=== PATIENT | female | born 1940 | race Caucasian/White ===

== ENCOUNTER → 2023-05-16 07:53 | Outpatient (REF) | payer MEDICARE, OTHER, SELFPAY | LOC: DHCBS MAIN 07:53 | PROVIDERS: ATTENDING PHYSICIAN Nuclear Medicine Nuclear Cardiology; FAMILY PHYSICIAN Family Medicine | DX: I48.0 Paroxysmal atrial fibrillation (principal); Z86.73 Personal history of transient ischemic attack (TIA), and cerebral infarction without residual deficits | CPT/HCPCS: 93306 ==

== ENCOUNTER 2023-10-27 04:54 | Observation (INO) | payer MEDICARE, OTHER, SELFPAY ==
[2023-10-26 22:23] VITALS: BP 151/60; BMI 32.0
[2023-10-26 22:25] VITALS: BP 151/60
[2023-10-26 22:38] LABS: % Basophils 0.6 % (0-2); % Eosinophils 1.6 % (0-6); % Immature Granulocytes 0.6 % (0-0.5); % Lymphocytes 20.6 % (20.5-51.1); % Monocytes 7.2 % (1.7-9.3); % Neutrophils 69.4 % (42.2-75.2); Absolute Basophils 0.1 10^3/uL (0-0.2); Absolute Eosinophils 0.2 10^3/uL (0-0.7); Absolute Immature Granulocytes 0.1 10^3/uL (0-0.05); Absolute Lymphocytes 2.6 10^3/uL (1.2-3.4); Absolute Monocytes 0.9 10^3/uL (0.1-0.6); Absolute Neutrophils 8.8 10^3/uL (1.4-6.5); Hematocrit 39.7 % (37.0-47.0); Hemoglobin 13.4 g/dL (12.0-16.0); Mean Corp Hgb Conc. 33.8 g/dL (33.0-37.0); Mean Corpuscular Hgb 29.3 pg (27.0-31.0); Mean Corpuscular Volume 86.7 fL (81.0-99.0); Mean Platelet Volume 10.4 fL (7.4-10.4); Nucleated Red Blood Cells % 0 %; Platelet Count 250 10^3/uL (130-400); Red Blood Cell Count 4.58 10^6/uL (4.20-5.40); Red Cell Dist. Width 14.3 % (11.5-14.5); White Blood Cell Count 12.7 10^3/uL (4.8-10.8)
[2023-10-26 22:55] VITALS: BP 145/57
[2023-10-26 22:59] LABS: ALT (SGPT) 20 U/L (0-35); AST (SGOT) 32 U/L (14-36); Albumin 4.4 g/dl (3.5-5.0); Alkaline Phosphatase 148 U/L (38-126); Blood Urea Nitrogen 22 mg/dl (7-17); Calcium 10.2 mg/dl (8.4-10.2); Carbon Dioxide 24 mmol/L (22-30); Chloride 101 mmol/L (98-107); Estimated Creatinine Clearance 21 ml/min; Glucose 125 mg/dl (70-99); Potassium 3.9 mmol/L (3.5-5.1); Sodium 143 mmol/L (135-145); Total Bilirubin 0.8 mg/dl (0.2-1.3); eGFR 25.88
[2023-10-26 23:00] VITALS: BP 150/60
[2023-10-26 23:30] VITALS: BP 162/63
[2023-10-27] VITALS (14 sets, daily range): BP systolic 126–178; BP diastolic 58–80; BMI 31.3
--- NOTE | 2023-10-27 01:49 | ED.GENMED ---
History of Present Illness
General
Chief Complaint: Anal/Rectal Problem
Source: patient
Exam Limitations: none
Time Seen by Provider: 10/27/23 00:07
History of Present Illness
History of Present Illness:
This is a 83 year old female that comes in with c/o rectal prolapse. Stae that she was to be here at 10:30am on Monday morning for a colonoscopy. States that she had to cancel two other attempts as she was unable to handle the prep. States that
today she started the prep again for the colonoscopy and she was just sitting on the toilet for hours. States that she had a rectal prolapse which she has had in the paste and it was as big as her hand. State that she had abd pain that was severe.
States that she felt more SOB, and that she has a headache most of the time and felt dizzy yesterday. States that she did have urinary burning. Denies any fever, chils, chest pain, nausea, vomiting,.
Past History
Past History
ED Past Medical History: Arrthythmia (Atrial fib), COPD, CVA (No residual), GERD (hiatal hernia), HTN, Hypercholesterolemia, NIDDM, Hypothyroidism and Other (Meniere's, IBS, PNA, Diverticulitis, Second hand emphysema, gastroenteritis, Stress incont,
Uterine and bowel prolpase)
ED Past Surgical History: Appendectomy, Gynecological (tubel, Partial Hysterectomy), Orthopedic (Bilateral knee replacements, Right knee X 2 and left knee once, Carpal tunnel, ), Tonsilectomy, Urological (Prolapsed bladder) and Other
(Thyroidectomy, Cataracts, Right and left breast cyst)
Social History
Tobacco: Non-smoker (Second hand smoke)
Alcohol: None
Drug: None
Personal:
Living: with family
Employment: Retired
Family History
Family History: Other (COPD )
Review of Systems
Review of Systems
All Other Systems: ROS reviewed and negative except as documented in HPI and ROS
Constitutional: Reports no symptoms; Denies fever or chills
EENT: Reports no symptoms
Respiratory: Reports trouble breathing; Denies cough
Cardiac: Reports no symptoms; Denies chest pain
ABD/GI: Reports abdominal pain, diarrhea and other (Rectal prolapse); Denies nausea or vomiting
: Reports dysuria; Denies frequency or urgency
Musculoskeletal: Reports no symptoms
Skin: Reports no symptoms
Neurological: Reports dizzy and headache (Most of the time)
Psychiatric: Reports no symptoms
Phy Exam
General Physical Exam
General Presentation: mild distress
General age: appears stated age
General Skin: warm and dry
General Habitus: elderly
General Mental: alert
General Hydration: dry mucous membranes
ENT Exam
ENT Exam: TM's normal, pharynx normal and neck supple
Eye Exam
Eye Exam: EOMI
Cardiovascular Exam
Cardiovascular Exam: regular rate/rhythm, normal peripheral pulses and other (Murmur)
Pulmonary Exam
Pulmonary Exam: lungs clear, no respiratory distress, no rales, chest non tender, no crackles, no rhonchi, no wheezing and no cough
Gastrointestinal Exam
Gastrointestinal Exam: soft, no organomegaly, no pulsatile mass, non distended, tender (Generalized tenderness with palpation) and other (Hyperactive bowel sounds)
Musculoskeletal Exam
Musculoskeletal Exam: full ROM and no edema
Skin Exam
Skin Exam: normal color, warm/dry, no rash and no petechia
Psychiatric Exam
Psychiatric Exam: normal mood/affect
Course
Orders/Labs/Results
Orders:
Orders
10/26/23 22:29
Electrocardiogram (*1) Urgent
Reason for Study: Chest Pain
EKG- Treatment ONCE
10/26/23 22:32
Complete Blood Count/With Diff Urgent
Comprehensive Metabolic Panel Urgent
10/27/23 01:49
0.9% Sodium Chloride 1000 ml [Nss] 1,000 ml IV BOLUS
10/27/23 01:53
Urinalysis Reflex To Culture Urgent
Abnormal Lab Results
10/26/23
22:32
WBC 12.7 H 10^3/uL
(4.8-10.8)
Abs Immat Gran (auto) 0.1 H 10^3/uL
(0-0.05)
Absolute Neuts (auto) 8.8 H 10^3/uL
(1.4-6.5)
Absolute Monos (auto) 0.9 H 10^3/uL
(0.1-0.6)
Immature Gran % 0.6 H %
(0-0.5)
BUN 22 H mg/dl
(7-17)
Creatinine 1.9 H mg/dL
(0.6-1.0)
Glucose 125 H mg/dl
(70-99)
Alkaline Phosphatase 148 H U/L
(38-126)
10/26/23 22:32
10/26/23 22:32
Leukocytosis, Dehydration. Chronic renal insufficiency,, Hyperglycemia. Alk phos elevation.
Vital Signs
Initial and Last Documented VS:
Initial Vital Signs
Temp Pulse Resp BP Pulse Ox
98.5 F 86 16 151/60 99
10/26/23 22:23 10/26/23 22:23 10/26/23 22:23 10/26/23 22:23 10/26/23 22:23
Last Documented Vital Signs
Temp Pulse Resp BP Pulse Ox
98.5 F 81 17 168/69 93
10/26/23 22:23 10/27/23 00:45 10/27/23 00:45 10/27/23 00:00 10/27/23 00:45
MDM/Problems Addressed
Differential Diagnosis Includes:
Prolapse bowel, Weakness, abd pain
MDM/Problems Addressed:
This is a 83 year old female that comes in with c/o prolapsed bowel. States that she is doing a prep for a colonoscopy today and she had to sit on the toilet as the fluid was just running out. States that she felt a rectal prolapse that was as big
as her head. States that she did have this years ago and had the bladder repaired but was unable to get the rectal prolapsed repaired. States that she is so weak and she feels she can't do any more of the prep.
Will check labs. Give IV fluids. Explained to patient that the prolapse has receded and that she does have some hemorrhoids. Patient c/o abd pain and weakness. Will admit for 23 hours observation.
Chronic conditions affecting care:
History of Prolapse bladder and bowel,
Acute Exacerbation and/or Progression of Chronic Illness:
Prolapsed bowel,
*Pulse Oximetry
Patient hypoxic: no
*EKG
Interpreted by ED Provider?: Yes
Heart Rate: 76
Rate: normal
Rhythm: sinus
[place]: normal axis
Interval: first degree heart block and long QT
QRS Pattern: normal QRS
Ischemia: no ischemia
*[employer] Interpretation
Rate: normal
Heart Rate: 80
Rhythm: sinus (1St degree heart block)
*Critical Care Note
Total Time (30-74mins, 75-104mins- exclusive of procedures): Not Applicable
ED Attending Note
-
Portions of this chart may have been created with voice recognition software.� Occasional wrong word or��sound alike� substitutions may have occurred due to the inherent limitations of voice recognition software.
Discharge Plan
Departure
Patient Disposition: Admit
Date of Disposition: 10/27/23
Time of Disposition: 02:12
Admit to: Med/Surg
Presentation/result/management discussed w/ accepting MD/DO: Hospitalist
Patient with high blood pressure during this ER visit?: Yes
Condition: Good
Covid-19: Not Applicable
Discharge Problem:
Abdominal pain, Weakness
Prescriptions:
No Action
calcium carbonate-vitamin D3 [Caltrate 600 plus D] 1 EACH tablet,chewable
1 tab PO DAILY
multivitamin with folic acid [Tab-A-Brandon] 1 TABLET tablet
1 tab PO DAILY
levothyroxine 75 MCG tablet
75 mcg PO DAILY
atorvastatin 20 MG tablet
40 mg PO QPM
B-complex with vitamin C 1 CAPLET tablet
1 cap PO DAILY
sertraline 50 MG tablet
25 mg PO DAILY
calcium polycarbophil [Fiber-Tabs] 625 MG tablet
1,250 mg PO BID
diltiazem HCl 120 MG capsule,extended release 24hr
120 mg PO BID
allopurinol 100 MG tablet
150 mg PO DAILY
aspirin 81 MG tablet,delayed release (DR/EC)
81 mg PO DAILY
furosemide 20 MG tablet
40 mg PO DAILY
potassium chloride 10 MEQ tablet,ER particles/crystals
10 meq PO DAILY
Lactobac 2-Bifido 1-S. therm [High Potency Probiotic] 1 CAP capsule
1 cap PO DAILY
clopidogrel 75 MG tablet
75 mg PO DAILY Qty: 21 0RF
Referrals:
Scooter Green MD [Family Provider] -
Interventions
Interventions:
*Risk Screen - Suicide Last Done: 10/26/23 22:23
*General Assessment Last Done: 10/26/23 22:23
*Neglect/Abuse Screening Last Done: 10/26/23 22:23
ED- Fall Risk Assessment Last Done: 10/26/23 22:23
XX-Zctufc-Eudryqsuxz Assessment Last Done: 10/26/23 22:23
Discharge Date and Time
Print Language: SWAZI
[2023-10-27] MEDS: NSS 1000 IV (02:03)
--- NOTE | 2023-10-27 03:59 | HPS.HSE ---
Family Physician
-
Family Physician: Scooter Green
Chief Complaint
-
Rectal prolapse, now reduced spontaneosly
History of Present Illness
Patient is lifrwdr-ndfo-vry female with past medical history significant for proximal atrial fibrillation hypothyroidism hypertension, CKD, hyperlipidemia, gout, presenting to the emergency department with a rectal prolapse.
Patient was in usual state of health and was apparently undergoing prep for a colonoscopy. She had been having intermittent episodes of bright red blood per rectum which showed because the referral for the colonoscopy. Patient had one half of the
prep and then started having bowel movements. Then she started having abdominal pain and rectal pain. There was no blood. The prolapse was the the extent of her hand and she did notice severe pain with the weakness in the legs and decided to come
to the emergency department.
On arrival in the emergency department the patient was recumbent and the rectal prolapse that resolved spontaneously. She still complain of some bilateral lower quadrant tenderness and mild abdominal discomfort. There is no nausea or vomiting.
Of note patient had a history of prolapse as well as rectal prolapse about 10 years ago. She underwent surgery for the uterine prolapse at [facility] slightly less than 10 years ago with plans for a repair of the rectal prolapse as well but this
was never completed. She had recurrent symptoms since. Denies constipation.
In the emergency department she was afebrile, hemodynamically stable normal oxygen saturation and in no acute distress. ECG was unremarkable with a rate of 76 for degree of block and QTc of 542. There is a mild leukocytosis to 12,000 with normal
hemoglobin and platelet counts. Chemistries were unremarkable with a known creatinine of 1.9 which is up from 1.7 from 3 years ago.
Medical History
Past Medical History
Past Medical History: Reports Arrhythmia (paroxysmal atrial fibrillation), HTN and Hypercholesterolemia
Additional Past Medical History:
CKD 3
Menieres
Past Surgical History: Reports Gynocological (uterine prolapse repair) and Orthopedic (TKA)
Social History
Tobacco: Non-smoker
Alcohol: None
Drug: None
Personal:
Living: With Family
Employment: Retired
Family History
Family History: Not pertinent
Allergies / Home Medications
Allergies reflects when Allergies were last updated in [facility].
Home Medications with original date entered in [facility]
Allergy/Medication List:
Allergies
Allergy/AdvReac Type Severity Reaction Status Date / Time
Penicillins Allergy Unknown Hives,Hives; Verified 10/26/23 22:23
TOLERATES
CEFAZOLIN,Hives,Hives;
TOLERATES
CEFA
NSAIDS (Non-Steroidal Allergy 'stomach Verified 10/26/23 22:23
Anti-Inflamma issues
rofecoxib Allergy 'STOMACH Verified 10/26/23 22:23
ISSUES'
Home Medications
calcium carbonate 600 mg-vitamin D3 20 mcg (800 unit) chewable tablet (Caltrate 600 plus D) 1 tab PO DAILY Supplement 03/28/14
multivitamin with folic acid 400 mcg tablet (Tab-A-Brandon) 1 tab PO DAILY Supplement 11/10/16
levothyroxine 75 mcg tablet 75 mcg PO DAILY Thyroid 11/21/17
B-complex with vitamin C 1 cap PO DAILY Supplement 02/28/18
atorvastatin 20 mg tablet 80 mg PO QPM High cholesterol 02/28/18
sertraline 50 mg tablet 25 mg PO DAILY Depression 10/07/18
calcium polycarbophil 625 mg tablet (Fiber-Tabs) 1,250 mg PO BID Gastrointestinal issue 07/16/19
diltiazem HCl 120 mg capsule,extended release 24 hr 120 mg PO BID Blood pressure 07/16/19
Lactobac no.2-Bifidobac no.1-S. thermo 112.5 billion cell capsule (High Potency Probiotic) 1 cap PO DAILY Supplement 05/08/20
allopurinol 100 mg tablet 150 mg PO DAILY Gout 05/08/20
aspirin 81 mg tablet,delayed release 81 mg PO DAILY Blood clot prevention/tx 05/08/20
furosemide 20 mg tablet 40 mg PO DAILY Fluid retention/Swelling 05/08/20
potassium chloride 10 mEq tablet,extended release(part/cryst) 10 meq PO DAILY Supplement 05/08/20
clopidogrel 75 mg tablet 75 mg PO DAILY #21 tabs 05/09/20
acetaminophen 650 mg tablet,extended release 650 mg PO Q12H PRN pain 10/27/23
meclizine 25 mg tablet 25 mg PO DAILY PRN vertigo 10/27/23
Review of Systems
-
History Source: Patient
Constitutional: Reports No Symptoms
EENT: Reports No Symptoms
Respiratory: Reports No Symptoms
Cardiac: Reports No Symptoms
Abdomen/GI: Reports Abdominal Pain
: Reports No Symptoms
Musculoskeletal: Reports No Symptoms
Skin: Reports No Symptoms
Neurological: Reports No Symptoms
Endocrine: Reports No Symptoms
Hematologic/Lymphatic: Reports No Symptoms
Psych: Reports No Symptoms
Physical Exam
Vital Signs
Vital Signs
Temp Pulse Resp BP Pulse Ox
98.5 F 81 17 168/69 93
10/26/23 22:23 10/27/23 00:45 10/27/23 00:45 10/27/23 00:00 10/27/23 00:45
Physical Exam
General: Comfortable
HEENT: NormoCephalic, Anicteric, Moist mucous membranes and Atraumatic
Respiratory: Clear
Cardiac: S1/S2 and Regular Rhythm
Breast: Deferred by me
GI: Soft, Non Distended, Normal Bowel Sounds and Tender
Rectal: Deferred by Provider
Genito-urinary: Deferred by me
Musculoskeletal: No Clubbing, No Cyanosis and No Edema
Skin: Warm
Neuro: AO x 3
Hematologic/Lymphatic: No Lymphadenopathy
Psych: Calm
Laboratory Results
-
10/26/23 22:32
10/26/23 22:32
Laboratory Results
Total Bilirubin 0.8 mg/dl (0.2-1.3) 10/26/23 22:32
AST 32 U/L (14-36) 10/26/23 22:32
ALT 20 U/L (0-35) 10/26/23 22:32
Alkaline Phosphatase 148 U/L (38-126) H 10/26/23 22:32
Data Reviewed
-
Medical Tests (Nuc Med, Echo, EKG etc): Image Personally Visualized and interpreted
Lab Data: Labs Reviewed by me
Old Records: Reviewed
Impression/Plan
-
IMPRESSION:
PLAN:
Rectal prolapse - History of prior rectal and vaginal prolapse with repair at [facility] about 10 years ago. Developed episode of rectal prolapse after 1/2 prep for colonoscopy that was scheduled for 10/26 10:30 am. The rectal prolapse reduced
spontaneously on arrival in ED. She still feels weak and anxious. No acute abnormalities on lab. Denies recent constipation.
- admit to observation
- clear liquid diet for now
- GI surgery consultation
- gentle hydration for now
pAFIB - Patient rate control. No anticoagulation due to concern for bleeding
- rate control with diltiazem
TIA/CVA -
- aspirin, statin
DVT PPX - heparin sq
Code status - DNR
[2023-10-27 07:56] LABS: Urine Albumin Negative (Neg - Trace); Urine Bilirubin Negative (Negative); Urine Character Slightly Cloudy (Clear); Urine Color Yellow; Urine Glucose Negative (Negative); Urine Ketone Negative (Negative); Urine Leukocyte Trace (Negative); Urine Nitrite Negative (Negative); Urine Occult Blood Negative (Negative); Urine Specific Gravity 1.015 (<1.030); Urine Urobilinogen Negative (Neg - 1+); Urine pH 6.5 (5.0-9.0)
[2023-10-27 08:11] LABS: Urine Bacteria Moderate (Negative); Urine Squamous Cell >30 /LPF (Few)
[2023-10-27 08:12] LABS: Urine Red Blood Cell 0-2 /HPF (0-2)
[2023-10-27] MEDS: SYNTHROID 75 MCG PO (09:20)
[2023-10-27] MEDS: LR 1000 IV (09:20)
--- NOTE | 2023-10-27 09:26 | CON.CRS ---
Consultation
-
Date/Time Consultation Requested: 10/27/2023, 07:00
Date/Time Consultation Performed: 10/27/2023, 08:30
Requesting Provider: Isabela Ceron MD
Performing Provider: Jim Tai MD
Reason for Consultation: rectal prolapse
Medical History
-
Chief Complaint: Rectal prolapse
History of Present Illness:
83-year-old female with a past medical history of uterine prolapse and atrial fibrillation, presents to [facility] early this a.m. complaining of rectal prolapse. The patient was to undergo a colonoscopy today and had been doing the Sutab prep
yesterday. She states that she normally has a little bit of prolapse at baseline but after she prepped for this colonoscopy, she had severe diarrhea and noticed a large prolapse. She states she had severe back and abdominal pain during the
prolapse. She denies incontinence.
On arrival to the ER apparently the prolapse had resolved. She states she had a uterine prolapse in the past and this was repaired at [facility] about 10 years ago which she does not recall the surgery. She believes she still has a uterus. She
has had polyps in the past during her colonoscopies. Her past abdominal surgeries include a tubal ligation and appendectomy. In the ER her WBC is 12.7. Her labs are normal. We have been consulted for further surgical opinion regarding her
prolapse.
Past Medical History
Past Medical History: Other (Atrial fibrillation, uterine prolapse, hypertension, hyperlipidemia)
Past Surgical History: Appendectomy and Gynecological (Tubal ligation)
Social History
Tobacco: Non-Smoker
Alcohol: None
Drug: None
Personal:
Family History
Family History: Reviewed & Not Pertinent
Allergies / Home Medications
Allergy/AdvReac Type Severity Reaction Status Date / Time
Penicillins Allergy Unknown Hives,Hives; Verified 10/26/23 22:23
TOLERATES
CEFAZOLIN,Hives,Hives;
TOLERATES
CEFA
NSAIDS (Non-Steroidal Allergy 'stomach Verified 10/26/23 22:23
Anti-Inflamma issues
rofecoxib Allergy 'STOMACH Verified 10/26/23 22:23
ISSUES'
�Medication �Instructions �Recorded �Confirmed �Type
calcium carbonate 600 mg-vitamin 1 tab PO DAILY Supplement 03/28/14 10/27/23 History
D3 20 mcg (800 unit) chewable
tablet (Caltrate 600 plus D)
multivitamin with folic acid 400 1 tab PO DAILY Supplement 11/10/16 10/27/23 History
mcg tablet (Tab-A-Brandon)
levothyroxine 75 mcg tablet 75 mcg PO DAILY Thyroid 11/21/17 10/27/23 History
B-complex with vitamin C 1 cap PO DAILY Supplement 02/28/18 10/27/23 History
atorvastatin 20 mg tablet 80 mg PO QPM High cholesterol 02/28/18 10/27/23 History
sertraline 50 mg tablet 25 mg PO DAILY Depression 10/07/18 10/27/23 History
calcium polycarbophil 625 mg 1,250 mg PO BID Gastrointestinal 07/16/19 10/27/23 History
tablet (Fiber-Tabs) issue
diltiazem HCl 120 mg 120 mg PO BID Blood pressure 07/16/19 10/27/23 History
capsule,extended release 24 hr
Lactobac no.2-Bifidobac no.1-S. 1 cap PO DAILY Supplement 05/08/20 06/10/20 History
thermo 112.5 billion cell capsule
(High Potency Probiotic)
allopurinol 100 mg tablet 150 mg PO DAILY Gout 05/08/20 10/27/23 History
aspirin 81 mg tablet,delayed 81 mg PO DAILY Blood clot 05/08/20 10/27/23 History
release prevention/tx
furosemide 20 mg tablet 40 mg PO DAILY Fluid 05/08/20 10/27/23 History
retention/Swelling
potassium chloride 10 mEq 10 meq PO DAILY Supplement 05/08/20 10/27/23 History
tablet,extended release(part/cryst)
clopidogrel 75 mg tablet 75 mg PO DAILY #21 tabs 05/09/20 06/10/20 Rx
acetaminophen 650 mg 650 mg PO Q12H PRN pain 10/27/23 10/27/23 History
tablet,extended release
meclizine 25 mg tablet 25 mg PO DAILY PRN vertigo 10/27/23 10/27/23 History
Review of Systems
-
History Source: Patient
Abdomen/GI: Abdominal Pain, Diarrhea and Other (rectal prolapse)
A 10 point review of systems was completed, and was negative except as per HPI.
Physical Exam
Vital Signs
Temp 97.8 F 10/27/23 07:50
Pulse 77 10/27/23 07:50
Resp Rate 18 10/27/23 07:50
Blood pressure 126/80 10/27/23 07:50
SaO2 96 10/27/23 07:50
10/26/23 10/27/23 10/28/23
06:59 06:59 06:59
Actual Weight 76.9 kg 77.649 kg
Body Mass Index (BMI) 31.3
Lab Results / Allergies
10/26/23 22:32
10/26/23 22:32
WBC 12.7 10^3/uL (4.8-10.8) H 10/26/23 22:32
Hgb 13.4 g/dL (12.0-16.0) 10/26/23 22:32
Hct 39.7 % (37.0-47.0) 10/26/23 22:32
Plt Count 250 10^3/uL (130-400) 10/26/23 22:32
Abs Immat Gran (auto) 0.1 10^3/uL (0-0.05) H 10/26/23 22:32
Neutrophils % 69.4 % (42.2-75.2) 10/26/23 22:32
Allergy/AdvReac Type Severity Reaction Status Date / Time
Penicillins Allergy Unknown Hives,Hives; Verified 10/26/23 22:23
TOLERATES
CEFAZOLIN,Hives,Hives;
TOLERATES
CEFA
NSAIDS (Non-Steroidal Allergy 'stomach Verified 10/26/23 22:23
Anti-Inflamma issues
rofecoxib Allergy 'STOMACH Verified 10/26/23 22:23
ISSUES'
Physical Exam
General: Well Developed, Well Nourished and No Apparent Distress
GI: Soft, Non Tender and Non Distended
Rectal: Other (one internal prolapsing hemorrhoid noted, slightly diminished tone, no masses, no bleeding, no rectal prolapse noted)
Skin: Warm and Dry
Neuro: AO x 3
Psych: Calm
Assessment / Plan
-
Assessment: 83-year-old female with prolapsed rectum in the past presents with worsening rectal prolapse after a colonoscopy prep
Plan:
On examination, the patient had one prolapsing internal hemorrhoid. She had no rectal prolapse currently on exam. We explained to the patient that rectal prolapse requires emergency surgery when it is not reducible and becoming necrotic, which is
not her case. It is possible the patient has large internal hemorrhoids that are prolapsing and worsen during her bowel prep. Regardless, there is no need for any urgent surgery at this time. She may follow-up in our office for an anoscopy exam
and further treatment of her internal hemorrhoids/ ? rectal prolapse. Continue fiber supplement. Follow-up in the office with Dr. Tai in 1 to 2 weeks.
[2023-10-27] MEDS: ZYLOPRIM 150 MG PO (10:11)
[2023-10-27] MEDS: ASPIR LOW (ENTERIC COATED) 81 MG PO (10:11)
[2023-10-27] MEDS: ZOLOFT 25 MG PO (10:11)
[2023-10-27] MEDS: CARDIZEM CD 120 MG PO (10:13)
[2023-10-27] MEDS: HEPARIN 5000 UNITS SC (10:14)
--- NOTE | 2023-10-27 11:29 | W.PN.UPDATE ---
Addendum entered and electronically signed by Edwin Gary MD 10/27/23 11:59:
Discussed with gastroenterology. Patient seen by colorectal. Suspected hemorrhoidal irritation. Patient is discharged home so can be discharged to outpatient GI lab for colonoscopy.
Original Note:
Update Note
Progress Note Update
Seen and examined independent of overnight physician. Denies any abdominal or rectal pain. States she finish colonoscopy prep yesterday and was supposed to undergo colonoscopy later today.
General: Comfortable
HEENT: NormoCephalic, Anicteric, Moist mucous membranes and Atraumatic
Respiratory: Clear
Cardiac: S1/S2 and Regular Rhythm
Breast: Deferred by me
GI: Soft, Non Distended, Normal Bowel Sounds and Tender
Rectal: Deferred by Provider
Genito-urinary: Deferred by me
Musculoskeletal: No Clubbing, No Cyanosis and No Edema
Skin: Warm
Neuro: AO x 3
Hematologic/Lymphatic: No Lymphadenopathy
Psych: Calm
Hemorrhoidal irritation secondary to colonoscopy prep
- History of prior rectal and vaginal prolapse with repair at [facility] about 10 years ago.
- NPO if patient can get colonoscopy once discharged
- gentle hydration for now
-appreciate CRS recs-Op f/u 1-2 weeks
pAFIB - Patient rate control. No anticoagulation due to concern for bleeding
- rate control with diltiazem
TIA/CVA -
- aspirin, statin
DVT PPX - heparin sq
Code status - DNR
d/w wtih GI. await to hearing back.
--- NOTE | 2023-10-27 11:38 | W.DCSUMMARY ---
Discharge Summary
Discharge Data
Date of Admission: 10/27/23
Date of Discharge: 10/27/23
-
Pending Results: No
Hospital Course
83 female past medical history of atrial fibrillation,, CKD, hypothyroidism, hyperlipidemia, History of stroke who is presenting from home with abdominal pain and complaining of rectal prolapse. Patient was undergoing colonoscopy prep as outpatient
for anemia. Patient having multiple bowel movement. Stating of abdominal and rectal pain. Patient stated prolapsed rectum was extended for hand and was having severe pain and lower extremity weakness. Was found to have mild leukocytosis
however hemoglobin and platelets were stable. Creatinine almost at baseline. Patient was evaluated by colorectal surgery. It was found upon surgery evaluation the patient with hemorrhoids and no prolapse was noted. It was deemed patient with
hemorrhoid irritation due to colonoscopy prep. Patient case was discussed with inpatient gastroenterology who recommended that patient if discharged home then can follow-up directly to outpatient GI lab for colonoscopy. Patient be discharged home
for outpatient colonoscopy. Patient would also need to follow-up outpatient with colorectal surgery.
Discharge Plan
-
Patient Disposition: Home (Routine Discharge)
Discharge Diagnosis/Procedures: Hemorrhoidal irritation
Condition: Fair
Diet: As tolerated
Activity: No restrictions
Driving Restrictions: As prior to admission
Referrals:
Jim Tai MD [Active] - in one to two weeks
Scooter Green MD [Family Provider] - in less than 1 week
Prescriptions:
Continued
Caltrate 600 plus D 1 EACH tablet,chewable
1 tab PO DAILY
multivitamin with folic acid [Tab-A-Brandon] 1 TABLET tablet
1 tab PO DAILY
levothyroxine 75 MCG tablet
75 mcg PO DAILY
atorvastatin 20 MG tablet
80 mg PO QPM
B-complex with vitamin C 1 CAPLET tablet
1 cap PO DAILY
sertraline 50 MG tablet
25 mg PO DAILY
calcium polycarbophil [Fiber-Tabs] 625 MG tablet
1,250 mg PO BID
diltiazem HCl 120 MG capsule,extended release 24hr
120 mg PO BID
allopurinol 100 MG tablet
150 mg PO DAILY
aspirin 81 MG tablet,delayed release (DR/EC)
81 mg PO DAILY
furosemide 20 MG tablet
40 mg PO DAILY
potassium chloride 10 MEQ tablet,ER particles/crystals
10 meq PO DAILY
High Potency Probiotic 1 CAP capsule
1 cap PO DAILY
clopidogrel 75 MG tablet
75 mg PO DAILY Qty: 21 0RF
acetaminophen 650 mg Tablet Extended Release
650 mg PO Q12H PRN (Reason: pain)
meclizine 25 mg Tablet
25 mg PO DAILY PRN (Reason: vertigo)
Discharge Orders:
Discharge Patient (As Directed); Ordered 10/27/23
Ordered By: Edwin Gary
Discharge Date and Time
Discharge Date/Time: 10/27/23 13:38
Print Language: SETSWANA
--- NOTE | 2023-10-27 12:28 | CM ---
night shift manager reviewed patient's chart and met with patient and patient was admitted under OBS, PECK letter provided to patient, signed and placed on chart. Patient lives with spouse in a one story home, patient is independent with adl's and
ambulation, Patient is for outpatient colonoscopy today and then home.
Pharmacy: [facility]
PCP: Dr. Green
Plan; Home today, no needs, patient to transfer to GI office for outpatient colonoscopy then home.
== END 2023-10-27 13:38 | disposition home or self-care (01) ==
LOC: 4 WEST ACU 04:54
PROVIDERS: Clinical Nurse Specialist Family Health; Emergency Medicine; ADMITTING PHYSICIAN Internal Medicine; ATTENDING PHYSICIAN Hospitalist; CONSULT PHYSICIAN Surgery; EMERGENCY PHYSICIAN Student in an Organized Health Care Education/Training Program; FAMILY PHYSICIAN Family Medicine
DX: K64.8 Other hemorrhoids (principal); D64.9 Anemia, unspecified; R10.9 Unspecified abdominal pain; R06.02 Shortness of breath; R51.9 Headache, unspecified; R42 Dizziness and giddiness; R30.9 Painful micturition, unspecified; I48.0 Paroxysmal atrial fibrillation; K58.9 Irritable bowel syndrome, unspecified; E78.00 Pure hypercholesterolemia, unspecified; I12.9 Hypertensive chronic kidney disease with stage 1 through stage 4 chronic kidney disease, or unspecified chronic kidney disease; E11.22 Type 2 diabetes mellitus with diabetic chronic kidney disease; E11.36 Type 2 diabetes mellitus with diabetic cataract; E11.65 Type 2 diabetes mellitus with hyperglycemia; E03.9 Hypothyroidism, unspecified; M10.9 Gout, unspecified; K62.5 Hemorrhage of anus and rectum; M79.606 Pain in leg, unspecified; K44.9 Diaphragmatic hernia without obstruction or gangrene; K21.9 Gastro-esophageal reflux disease without esophagitis; J43.9 Emphysema, unspecified; R07.9 Chest pain, unspecified; D72.829 Elevated white blood cell count, unspecified; E86.0 Dehydration; Z77.22 Contact with and (suspected) exposure to environmental tobacco smoke (acute) (chronic); Z79.82 Long term (current) use of aspirin; Z86.73 Personal history of transient ischemic attack (TIA), and cerebral infarction without residual deficits; Z79.890 Hormone replacement therapy; Z88.6 Allergy status to analgesic agent; Z88.1 Allergy status to other antibiotic agents; Z88.0 Allergy status to penicillin; Z66 Do not resuscitate
CPT/HCPCS: 80053; 81003; 81015; 85025; 87077; 87086; 87186; 93005; 96360; 99285; G0378

== ENCOUNTER → 2023-10-27 11:41 | Day surgery (SDC) | payer MEDICARE, OTHER, SELFPAY ==
[2023-10-27 14:34] LABS: Glucose - Point of Care 99 mg/dl (70-99)
== END ==
LOC: GI 11:41
PROVIDERS: ATTENDING PHYSICIAN Specialist
DX: Z12.11 Encounter for screening for malignant neoplasm of colon (principal); K57.30 Diverticulosis of large intestine without perforation or abscess without bleeding; D12.2 Benign neoplasm of ascending colon; D12.3 Benign neoplasm of transverse colon; K62.5 Hemorrhage of anus and rectum; D12.8 Benign neoplasm of rectum; Z86.010 Personal history of colon polyps
CPT/HCPCS: 45380; 88305; 82962

== ENCOUNTER 2023-11-14 12:03 | Emergency (ER) | payer MEDICARE, OTHER, SELFPAY ==
[2023-11-14] VITALS (7 sets, daily range): BP systolic 124–169; BP diastolic 55–117; BMI 29.5
--- NOTE | 2023-11-14 12:28 | ED.GENMED ---
History of Present Illness
General
Chief Complaint: Anal/Rectal Problem
Source: patient and spouse
Exam Limitations: none
Time Seen by Provider: 11/14/23 12:25
Nursing documentation reviewed up to this point in time: agreed with
History of Present Illness
History of Present Illness:
83 yr old female with past medical history of A-fib COPD CVA GERD hypertension hypercholesteremia [id number] diabetes hypothyroidism hemorrhoids M�ni�re's disease gastroenteritis presents to the ED for rectal pain . PT has reported severe
rectal pain which has continued since her last visit. Patient was admitted October 26 for rectal pain evaluated by colorectal surgery and was found to have hemorrhoids.
Patient did have an outpatient CAT scan since then and also follow-up with colorectal however presents today for 2 reasons. She presents today initially recommended see crisis. She has an outpatient therapist/psychiatrist and she had mentioned to
them that because of this constant rectal pain she wishes she' would not wake up,' however she denies suicidal thoughts. reports psychiatrist/therapist recommended she come to the ER.
She also presents to the medical ER because she complains of constant rectal pain. She describes pain in the outer rectum and also inside her abdomen.
Past History
Past History
ED Past Medical History: Arrthythmia (Atrial fib), COPD, CVA (No residual), GERD (hiatal hernia), HTN, Hypercholesterolemia, NIDDM, Hypothyroidism and Other (Meniere's, IBS, PNA, Diverticulitis, Second hand emphysema, gastroenteritis, Stress incont,
Uterine and bowel prolpase)
ED Past Surgical History: Appendectomy, Gynecological (tubel, Partial Hysterectomy), Orthopedic (Bilateral knee replacements, Right knee X 2 and left knee once, Carpal tunnel, ), Tonsilectomy, Urological (Prolapsed bladder) and Other
(Thyroidectomy, Cataracts, Right and left breast cyst)
Social History
Tobacco: Non-smoker (Second hand smoke)
Alcohol: None
Drug: None
Personal:
Living: with family
Employment: Retired
Family History
Family History: Other (COPD )
Phy Exam
General Physical Exam
General Presentation: no apparent distress
General age: appears stated age
General Skin: warm and dry
General Habitus: normal
General Mental: alert
Gastrointestinal Exam
Gastrointestinal Exam: soft and other (mild lower abd tenderness + hemorrhoids rectally )
Neurological Exam
Neurological Exam: alert and oriented x3
Musculoskeletal Exam
Musculoskeletal Exam: full ROM
Course
Orders/Labs/Results
Orders:
Orders
11/14/23 12:23
Crisis Consult Urgent
Reason for Consult: concerning statements
Comment: severe pain
11/14/23 13:53
Complete Blood Count/With Diff Urgent
Comprehensive Metabolic Panel Urgent
Lipase Urgent
Urinalysis Reflex To Culture Urgent
Date Specimen was Collected: 11/14/23
Time Specimen was Collected: 13:51
Urine Microscopic Reflex Cult Urgent
Urine Culture Urgent
DEMARCO Source: U
Specimen Description:
Date Specimen was Collected: 11/14/23
Time Specimen was Collected: 13:51
11/14/23 16:21
CT Abd/pel Without Iv Or Oral Urgent
Comment:
Reason For Exam: lower abd pain /recal pain dx w/ diveritic 11/06
Abnormal Lab Results
11/14/23
13:53
WBC 11.1 H 10^3/uL
(4.8-10.8)
MPV 11.1 H fL
(7.4-10.4)
Absolute Neuts (auto) 7.3 H 10^3/uL
(1.4-6.5)
Absolute Monos (auto) 0.7 H 10^3/uL
(0.1-0.6)
BUN 22 H mg/dl
(7-17)
Creatinine 1.8 H mg/dL
(0.6-1.0)
AST 47 H U/L
(14-36)
Urine Nitrite (Reflex) Positive A
(Negative)
Urine Bilirubin 1+ A
(Negative)
Leukocyte Esterase Rfl 1+ A
(Negative)
Urine RBC 3-6 A /HPF
(0-2)
Urine Bacteria (Reflex) Moderate A
(Negative)
11/14/23 13:53
11/14/23 13:53
Vital Signs
Initial and Last Documented VS:
Initial Vital Signs
Temp Pulse Resp BP Pulse Ox
97.6 F 80 20 124/74 98
11/14/23 12:05 11/14/23 12:05 11/14/23 12:05 11/14/23 12:05 11/14/23 12:05
Last Documented Vital Signs
Temp Pulse Resp BP Pulse Ox
97.6 F 60 10 164/56 98
11/14/23 12:05 11/14/23 16:30 11/14/23 16:30 11/14/23 16:00 11/14/23 12:05
MDM/Problems Addressed
MDM/Problems Addressed:
Patient is an 83-year-old female who presents for rectal pain. Patient has had chronic rectal pain and issues since prepping for colonoscopy several weeks ago. She was initially admitted for rectal pain and there was concern for hemorrhoids versus
rectal prolapse which resolved on its own. She did have an outpatient colonoscopy. Patient was evaluated by colorectal here and had a benign rectal polyp was found on colonoscopy that needs to be removed. Since she has had intermittent pain she
was eval by colorectal surgery. I did speak with Dr. Tai who saw pt as outpt and did recommend full workup including a defecating proctogram evaluation by urogynecology and his flexible sigmoidoscopy. He does state the patient went to
[place] recently and CAT scan that showed sigmoid diverticulitis (11/06)
Crisis eval pt . pt was sent by her psychologist as she stated she 'didnt want to wake up because of pain.' Pt describes rectal pain. PT denies however feeling suicidal. Psychologist did speak with crisis. Patient is cleared from a crisis
standpoint
As documented above with recent diagnosis of diverticulitis will order CAT scan and blood work.
White blood cell count minimally elevated however improved from prior. Renal function at baseline. No acute findings on CAT scan. Patient is resting comfortably no pain at the moment. Case reviewed with Dr. Tai. Patient has appointment on
November 28 with urogynecology still has to follow-up with other procedures recommended by Dr. Tai.
I did review this with patient in the importance of calling Dr. Tai's office tomorrow to follow-up with her appointments and return if any worsening of symptoms.
*Critical Care Note
Total Time (30-74mins, 75-104mins- exclusive of procedures): Not Applicable
ED Attending Note
-
Portions of this chart may have been created with voice recognition software.� Occasional wrong word or��sound alike� substitutions may have occurred due to the inherent limitations of voice recognition software.
Discharge Plan
Departure
Patient Disposition: Home (Routine Discharge)
Date of Disposition: 11/14/23
Time of Disposition: 17:33
Patient with high blood pressure during this ER visit?: Yes
Condition: Fair
Covid-19: Not Applicable
Discharge Problem:
Pain in rectum
Instructions: BLOOD PRESSURE
Prescriptions:
No Action
Caltrate 600 plus D 1 EACH tablet,chewable
1 tab PO DAILY
multivitamin with folic acid [Tab-A-Brandon] 1 TABLET tablet
1 tab PO DAILY
levothyroxine 75 MCG tablet
75 mcg PO DAILY
atorvastatin 20 MG tablet
80 mg PO QPM
B-complex with vitamin C 1 CAPLET tablet
1 cap PO DAILY
sertraline 50 MG tablet
25 mg PO DAILY
calcium polycarbophil [Fiber-Tabs] 625 MG tablet
1,250 mg PO BID
diltiazem HCl 120 MG capsule,extended release 24hr
120 mg PO BID
allopurinol 100 MG tablet
150 mg PO DAILY
aspirin 81 MG tablet,delayed release (DR/EC)
81 mg PO DAILY
furosemide 20 MG tablet
40 mg PO DAILY
potassium chloride 10 MEQ tablet,ER particles/crystals
10 meq PO DAILY
High Potency Probiotic 1 CAP capsule
1 cap PO DAILY
clopidogrel 75 MG tablet
75 mg PO DAILY Qty: 21 0RF
acetaminophen 650 mg Tablet Extended Release
650 mg PO Q12H PRN (Reason: pain)
meclizine 25 mg Tablet
25 mg PO DAILY PRN (Reason: vertigo)
Referrals:
Jim Tai MD [Active] -
Bob Isaac MD [Active] -
Scooter Green MD [Family Provider] -
Activity Restrictions/Additional Instructions:
Rectal pain:
As discussed follow-up with Dr. Tai as well as Dr. Isaac as scheduled. Return if any worsening of symptoms.
Interventions
Interventions:
*Risk Screen - Suicide Last Done: 11/14/23 12:43
*General Assessment Last Done: 11/14/23 12:42
*Neglect/Abuse Screening Last Done: 11/14/23 12:43
ED- Fall Risk Assessment Last Done: 11/14/23 12:33
*ED COVID-19 Vaccine History Last Done: 11/14/23 12:42
RL-Ooyyua-Kxpkxgjuro Assessment Last Done: 11/14/23 12:37
ED-Skin Assessment Last Done: 11/14/23 12:37
Discharge Date and Time
Print Language: SAMMARINESE
[2023-11-14 15:14] LABS: % Basophils 0.5 % (0-2); % Eosinophils 1.4 % (0-6); % Immature Granulocytes 0.4 % (0-0.5); % Lymphocytes 25.7 % (20.5-51.1); % Monocytes 6.5 % (1.7-9.3); % Neutrophils 65.5 % (42.2-75.2); Absolute Basophils 0.1 10^3/uL (0-0.2); Absolute Eosinophils 0.2 10^3/uL (0-0.7); Absolute Lymphocytes 2.8 10^3/uL (1.2-3.4); Absolute Monocytes 0.7 10^3/uL (0.1-0.6); Absolute Neutrophils 7.3 10^3/uL (1.4-6.5); Hematocrit 43.9 % (37.0-47.0); Hemoglobin 14.8 g/dL (12.0-16.0); Mean Corp Hgb Conc. 33.7 g/dL (33.0-37.0); Mean Corpuscular Hgb 30.8 pg (27.0-31.0); Mean Corpuscular Volume 91.3 fL (81.0-99.0); Mean Platelet Volume 11.1 fL (7.4-10.4); Nucleated Red Blood Cells % 0 %; Platelet Count 252 10^3/uL (130-400); Red Blood Cell Count 4.81 10^6/uL (4.20-5.40); Red Cell Dist. Width 14.2 % (11.5-14.5); White Blood Cell Count 11.1 10^3/uL (4.8-10.8)
[2023-11-14 15:15] LABS: Urine Albumin Trace (Neg - Trace); Urine Bilirubin 1+ (Negative); Urine Character Clear (Clear); Urine Color Yellow; Urine Glucose Negative (Negative); Urine Ketone Negative (Negative); Urine Leukocyte 1+ (Negative); Urine Nitrite Positive (Negative); Urine Occult Blood Negative (Negative); Urine Urobilinogen Negative (Neg - 1+)
[2023-11-14 15:23] LABS: Urine Squamous Cell >30 /LPF (Few)
[2023-11-14 15:24] LABS: Urine Calcium Oxalate Crystals Present; Urine Hyaline Cast 0-2 /LPF (0-2)
[2023-11-14 15:25] LABS: Urine Bacteria Moderate (Negative)
[2023-11-14 15:33] LABS: ALT (SGPT) 27 U/L (0-35); AST (SGOT) 47 U/L (14-36); Albumin 4.3 g/dl (3.5-5.0); Alkaline Phosphatase 105 U/L (38-126); Blood Urea Nitrogen 22 mg/dl (7-17); Carbon Dioxide 29 mmol/L (22-30); Chloride 101 mmol/L (98-107); Estimated Creatinine Clearance 22 ml/min; Glucose 81 mg/dl (70-99); Sodium 143 mmol/L (135-145); Total Bilirubin 0.5 mg/dl (0.2-1.3); eGFR 27.61
[2023-11-14 16:05] LABS: Lipase 142 U/L (23-300)
== END 2023-11-14 18:00 | disposition home or self-care (01) ==
LOC: EMR 12:03
PROVIDERS: Nurse Practitioner; EMERGENCY PHYSICIAN Emergency Medicine; FAMILY PHYSICIAN Family Medicine
DX: K62.89 Other specified diseases of anus and rectum (principal); I48.91 Unspecified atrial fibrillation; J43.9 Emphysema, unspecified; K21.9 Gastro-esophageal reflux disease without esophagitis; I10 Essential (primary) hypertension; E11.36 Type 2 diabetes mellitus with diabetic cataract; E03.9 Hypothyroidism, unspecified; E78.00 Pure hypercholesterolemia, unspecified; K58.9 Irritable bowel syndrome, unspecified; K62.1 Rectal polyp; R45.851 Suicidal ideations; Z86.73 Personal history of transient ischemic attack (TIA), and cerebral infarction without residual deficits; Z87.19 Personal history of other diseases of the digestive system; Z90.49 Acquired absence of other specified parts of digestive tract; Z96.653 Presence of artificial knee joint, bilateral
CPT/HCPCS: 99284; 74176; 80053; 81003; 81015; 83690; 85025; 87086

== ENCOUNTER 2023-11-15 13:22 | Inpatient (IN) | payer MEDICARE, OTHER, SELFPAY ==
[2023-11-15 14:00] VITALS: BP 142/69; BMI 30.8
[2023-11-15 14:23] LABS: % Basophils 0.8 % (0-2); % Eosinophils 1.7 % (0-6); % Immature Granulocytes 0.5 % (0-0.5); % Monocytes 7.1 % (1.7-9.3); % Neutrophils 60.9 % (42.2-75.2); Absolute Basophils 0.1 10^3/uL (0-0.2); Absolute Eosinophils 0.2 10^3/uL (0-0.7); Absolute Immature Granulocytes 0.1 10^3/uL (0-0.05); Absolute Lymphocytes 2.9 10^3/uL (1.2-3.4); Absolute Monocytes 0.7 10^3/uL (0.1-0.6); Absolute Neutrophils 6.2 10^3/uL (1.4-6.5); Hematocrit 40.8 % (37.0-47.0); Hemoglobin 13.6 g/dL (12.0-16.0); Mean Corp Hgb Conc. 33.3 g/dL (33.0-37.0); Mean Corpuscular Hgb 29.4 pg (27.0-31.0); Mean Corpuscular Volume 88.3 fL (81.0-99.0); Mean Platelet Volume 10.9 fL (7.4-10.4); Nucleated Red Blood Cells % 0 %; Platelet Count 252 10^3/uL (130-400); Red Blood Cell Count 4.62 10^6/uL (4.20-5.40); Red Cell Dist. Width 14.4 % (11.5-14.5); White Blood Cell Count 10.1 10^3/uL (4.8-10.8)
[2023-11-15 14:33] LABS: INR 1.09; PT 14.2 Sec (11.4-14.6)
[2023-11-15 14:34] LABS: APTT 25.2 Sec (23.4-35.0)
[2023-11-15 14:46] LABS: Blood Urea Nitrogen 23 mg/dl (7-17); Calcium 10.1 mg/dl (8.4-10.2); Carbon Dioxide 26 mmol/L (22-30); Chloride 104 mmol/L (98-107); Estimated Creatinine Clearance 21 ml/min; Glucose 100 mg/dl (70-99); Sodium 143 mmol/L (135-145); eGFR 25.88
--- NOTE | 2023-11-15 14:56 | PTCARENOTE ---
Received pt in room 411-1 as direct admission; pt AAO x3; forgetful; ambulatory to bed with assist x1, very unsteady; fall prec initiated. VSS. On room air- pulse ox 99 %, no SOB noted. Abd large, soft, pt currently NPO; aware of NPO past
midnight 11/15. Pt c/o rectal area 'pressure'. Pt DTV; states will void in BR with assistance. Resting in bed at present. Will continue to monitor.
--- NOTE | 2023-11-15 15:27 | HPS.HSE ---
Family Physician
-
Family Physician: NO INTERVIEW UNKNOWN
Chief Complaint
-
Anal pain
History of Present Illness
Patient is a 83-year-old female known to me in the recent past for anorectal complaints. She was lined up for an outpatient colonoscopy by Dr. Hein of GI and did not tolerate the bowel prep due to new onset of anorectal pain. She came into the
hospital for this. She also had some spotting of blood. She ultimately during that hospitalization did undergo a colonoscopy that by Dr. Hein on 10/27/2023. This revealed a fair prep, 4 benign tubular adenomas that were removed, and
diverticulosis. In the distal rectum there was a thickened fold of unclear significance. This was biopsied and interestingly, to Dr. Hein surprise, came back tubular adenoma. Dr. Hein was concerned that this thickened area may be irritation
from internal intussusception/rectal prolapse in the fashion of solitary rectal ulcer. I was consulted back then with concern for rectal prolapse. On exam she had what look like prolapsing internal hemorrhoids. On digital rectal examination she
had some subtle nodularity of the anorectal ring anteriorly of unclear significance. This was not firm and there was no mass. She was ultimately discharged to home. At home her main complaint has been unrelenting anal/rectal pain versus pressure.
It has been affecting her mentally as well. When I saw her in the office in follow-up I recommended outpatient workup for rectal prolapse to include outpatient defecating proctogram. Given the rectal polyp concern I also recommended an outpatient
flexible sigmoidoscopy by me. Unfortunately due to the persistent anorectal discomfort, she has been to the ER twice since then. She went to the ER at [place] recently and apparently had a CT showing evidence for sigmoid diverticulitis. I do
not have the images or report available however I did communicate with the ED doc at that time who described the above. She was placed on a course of antibiotics for this. More recently yesterday she came to the ER at [place] with anorectal
discomfort and a dry CT was done which was unremarkable. She has been calling my office almost on a daily basis recently and has been complaining to her primary care physician. This ultimately led to me recommending that she gets admitted to the
hospital on my service for pain management and further workup.
Interestingly on discussion, the patient has a history of hysterectomy and surgery to make 'my vagina smaller'. This was done in the [place] area. I suspect this was a treatment for vaginal/uterine prolapse and may have been done by
Nette Cahu of urogynecology down there. The patient denies any mesh being used.
Medical History
Past Medical History
Past Medical History: Reports COPD, HTN and Other (Gout; diabetes; IBS; atrial fibrillation; CVA; overactive bladder; chronic renal insufficiency; osteoporosis)
Past Surgical History: Reports Gynocological (Uterine prolapse surgery; tubal ligation; appendectomy; orthopedic surgery)
Social History
Tobacco: Non-smoker
Personal:
Living: With Family
Family History
Family History: Other (Negative for colon cancer)
Allergies / Home Medications
Allergies reflects when Allergies were last updated in [facility].
Home Medications with original date entered in [facility]
Allergy/Medication List:
PCN, NSAIDS, refecoxib
Review of Systems
-
A 12 point ROS was completed and negative except as noted: Yes
Physical Exam
Vital Signs
Vital Signs
Temp Pulse Resp BP Pulse Ox
97.8 F 71 22 142/69 99
11/15/23 14:00 11/15/23 14:00 11/15/23 14:00 11/15/23 14:00 11/15/23 15:24
Physical Exam
General: Well Developed
HEENT: NormoCephalic and Atraumatic
Respiratory: Clear
Cardiac: Regular Rhythm
GI: Soft, Non Tender and Non Distended
Rectal: Brown and Other (Mildly prolapsing internal hemorrhoids and external tags noted; no obvious fissure; normal muscle tone; sensitive levator; subtle nodularity of anorectal ring anteriorly; no mass)
Neuro: AO x 3
Psych: Anxious
Laboratory Results
-
11/15/23 14:10
11/15/23 14:10
Laboratory Results
PT 14.2 Sec (11.4-14.6) 11/15/23 14:10
INR 1.09 11/15/23 14:10
APTT 25.2 Sec (23.4-35.0) 11/15/23 14:10
Data Reviewed
-
CT Scan: Image Personally Visualized and interpreted, Report Reviewed by me and Discussed with Patient
Lab Data: Labs Reviewed by me and Discussed with Patient
Old Records: Reviewed
Impression/Plan
-
IMPRESSION/PLAN: 83-year-old female with anorectal pressure/pain of unclear etiology. She does have sizable prolapsing internal hemorrhoids and minor anal tags which I do not believe to be the source of the discomfort. The severity of the
discomfort and the effect is having on her quality of life is impressive. She may have an element of rectal prolapse which may or may not be just mucosal. There is a subtle nodularity/irregularity at the anorectal ring on BEAU. I do not believe
this is a mass or malignancy. It may well be solitary rectal ulcer syndrome which can be seen in people with at least internal intussusception if not full-thickness rectal prolapse as a result of chafing. She also has a known thickening of the
distal rectum on prior colonoscopy which may be a result of the same. Interestingly the biopsy previously showed tubular adenoma which does not quite make sense to me. She also has a known history of pelvic floor issues, namely uterine prolapse
that required surgery in the past done in [place]. At this point in time pain control is a priority although I am not keen on putting her on long-term narcotics given her age especially. Will plan on taking her to the operating room tomorrow for
an anal exam under anesthesia with possible polyp removal if an obvious distal rectal polyp is found and flexible sigmoidoscopy to better assess the area. I emphasized to her that the result of this procedure is not predictable. Certainly if I
remove something I do not anticipated improving and her pain. In fact it may worsen it temporarily at least during the healing process. Whether she ultimately needs some type of rectal prolapse operation is a good question. I do not anticipate
that happening during this admission. I do believe she would benefit from an outpatient defecating proctogram to better assess this question. In the meantime I will consult the hospitalist for medical management, psychiatry for help with her
anxiety and depression and the effect this anorectal pain has had an on her quality of life, and I will also consult Dr. Isaac of urogynecology for his take. In regards to the operation tomorrow risk and benefits were discussed and she has agreed
to proceed. I anticipate this happening late in the day as I have 2 major cases before hand. She will be n.p.o. after midnight. In enemas ordered for tomorrow to clean her rectum out preoperatively.
--- NOTE | 2023-11-15 16:02 | CON.HOSP ---
Addendum entered and electronically signed by Vicky Krishna MD 11/15/23 20:25:
I saw and examined the patient.
The SPECIAL DISTRIBUTION CLERK or PA's note was reviewed and I agree with the note.
Comment:
83F paroxysmal atrial fibrillation, hypertension, hyperlipidemia, hypothyroidism, and prior lacunar stroke direct admit under colorectal surgery surgery for persistent debilitating rectal pain results in multiple frequent ED visits. Planned for
anal exam under anesthesia and flex sigmoidoscopy, Hospitalist group consulted for medical management. Currently in no acute distress. VSS.
Physical Exam
General: Well Developed and Well Nourished
HEENT: Normocephalic and Anicteric
Respiratory: Clear and Non Labored Respirations
Cardiac: S1/S2 and Regular Rhythm
GI: Soft and Non Tender
Musculoskeletal: No Clubbing and No Cyanosis
Skin: Warm and Dry
Neuro: AOx3
Psych: Calm
Persistent Anal / Rectal Pain
Paroxysmal Atrial Fibrillation
Essential Hypertension
Hyperlipidemia
Hx Diabetes Mellitus, Type II resolved for years as per patient
Hx Lacunar Stroke - Left Thalamus
Hx CKD Stage III, possible DAMON on CKD III vs CKD IV
Hypothyroidism
Dementia
Depression
diet, NPO after midnight for flex sigmoidoscopy anal exam under anesthesia as per primary CRS
Monitor renal function, trial IVF gentle hydration for possible DAMON on CKD III
Noted hx of DM, resolved for yrs as per patient, check A1c, low dose sliding scale for now
Cont blood pressure rate control
Hold Lasix when NPO
Hold potassium supplementation when Lasix is on hold
Original Note:
Consultation
-
Date/Time Consultation Requested: November 15, 2023 at 3:35PM
Date/Time Consultation Performed: November 15, 2023 at 4:00PM
Requesting Provider: Dr. Jim Tai
Performing Provider: Dawna Gutierrez PA-C / Dr. Vicky Krishna
Reason for Consultation: Medical Management
Family Physician
-
Family Physician: NO INTERVIEW UNKNOWN
Chief Complaint
-
Rectal Pain
History of Present Illness
Patient is an 83 y/o female past medical history paroxysmal atrial fibrillation, hypertension, hyperlipidemia, hypothyroidism, and prior lacunar stroke who was directly admitted to the hospital under colorectal surgery surgery for persistent rectal
pain. Patient has had several ED visits due to rectal pain, and complained of feeling a bulging in her rectum. Patient has been directly admitted to the hospital for anal examination under anesthesia, sigmoidoscopy and possible polypectomy.
Hospitalist group was consulted for medical management.
Medical History
Past Medical History
Past Medical History: Reports Other
Additional Past Medical History:
Paroxysmal Atrial Fibrillation
Essential Hypertension
Hyperlipidemia
Diabetes Mellitus, Type II
Lacunar Stroke - Left Thalamus
CKD Stage III
Hypothyroidism
Dementia
Meniere's Disease
Past Surgical History: Reports Other
Additional Past Surgical History:
Total Knee Replacement
Uterine Prolapse Repair
Social History
Tobacco: Non-smoker
Alcohol: None
Family History
Family History: Reviewed & Not Pertinent
Allergies / Home Medications
Allergies reflects when Allergies were last updated in [facility].
Home Medications with original date entered in [facility]
Allergy/Medication List:
Allergies
Allergy/AdvReac Type Severity Reaction Status Date / Time
Penicillins Allergy Unknown Hives,Hives; Verified 11/15/23 14:06
TOLERATES
CEFAZOLIN,Hives,Hives;
TOLERATES
CEFA
NSAIDS (Non-Steroidal Allergy 'stomach Verified 11/15/23 14:06
Anti-Inflamma issues
rofecoxib Allergy 'STOMACH Verified 11/15/23 14:06
ISSUES'
Home Medications
calcium 600 mg (as carbonate)-vit D3 20 mcg (800 unit) chewable tablet (Caltrate plus D) 1 tab PO DAILY Supplement 03/28/14
multivitamin with folic acid 400 mcg tablet (Tab-A-Brandon) 1 tab PO DAILY Supplement 11/10/16
levothyroxine 75 mcg tablet 75 mcg PO DAILY Thyroid 11/21/17
B-complex with vitamin C 1 cap PO DAILY Supplement 02/28/18
atorvastatin 20 mg tablet 80 mg PO QPM High cholesterol 02/28/18
sertraline 50 mg tablet 25 mg PO DAILY Depression 10/07/18
calcium polycarbophil 625 mg tablet (Fiber-Tabs) 1,250 mg PO BID Gastrointestinal issue 07/16/19
diltiazem HCl 120 mg capsule,extended release 24 hr 120 mg PO BID Blood pressure 07/16/19
Lactobac no.2-Bifidobac no.1-S. thermo 112.5 billion cell capsule (High Potency Probiotic) 1 cap PO DAILY Supplement 05/08/20
allopurinol 100 mg tablet 150 mg PO DAILY Gout 05/08/20
aspirin 81 mg tablet,delayed release 81 mg PO DAILY Blood clot prevention/tx 05/08/20
furosemide 20 mg tablet 40 mg PO DAILY Fluid retention/Swelling 05/08/20
potassium chloride 10 mEq tablet,extended release(part/cryst) 10 meq PO DAILY Supplement 05/08/20
acetaminophen 650 mg tablet,extended release 650 mg PO Q12H PRN pain 10/27/23
meclizine 25 mg tablet 25 mg PO DAILY PRN vertigo 10/27/23
donepezil 10 mg tablet 10 mg PO HS 11/15/23
Review of Systems
-
A 12 point Review of Systems was completed except as noted: Yes
Constitutional: Denies Fever or Chills
Respiratory: Denies Cough or Trouble Breathing
Cardiac: Denies Chest Pain or Palpitations
Abdomen/GI: Reports See HPI
Physical Exam
Vital Signs
Vital Signs
Temp Pulse Resp BP Pulse Ox
97.8 F 71 22 142/69 99
11/15/23 14:00 11/15/23 14:00 11/15/23 14:00 11/15/23 14:00 11/15/23 15:24
Physical Exam
General: Well Developed and Well Nourished
HEENT: Normocephalic and Anicteric
Respiratory: Clear and Non Labored Respirations
Cardiac: S1/S2 and Regular Rhythm
GI: Soft and Non Tender
Rectal: Deferred by Provider
Musculoskeletal: No Clubbing and No Cyanosis
Skin: Warm and Dry
Neuro: Awake, Alert, Oriented and No Motor Deficits
Psych: Calm
Laboratory Results
-
Laboratory Results
11/15/23 14:10
11/15/23 14:10
PT 14.2 Sec (11.4-14.6) 11/15/23 14:10
INR 1.09 11/15/23 14:10
APTT 25.2 Sec (23.4-35.0) 11/15/23 14:10
Data Reviewed
-
Lab Data: Labs Reviewed
Old Records: Reviewed
Impression / Plan
-
Persistent Anal / Rectal Pain
-Reviewed with colorectal surgery
Paroxysmal Atrial Fibrillation
-Continue diltiazem
-Patient is not on anticoagulation as outpatient due to prior falls and prior rectal sheath hematoma
Essential Hypertension
-Continue diltiazem with hold parameters
Hyperlipidemia
-Continue atorvastatin
Diabetes Mellitus, Type II
-Monitor sugars and continue coverage insulin
Hx Lacunar Stroke - Left Thalamus
-Continue aspirin
CKD Stage III
-Creatinine at baseline
Hypothyroidism
-Continue levothyroxine
Dementia
-Continue donepezil
-Monitor for mood/behavior changes during hospitalization particularly following anesthesia
Depression
-Continue Zoloft
DVT proph: SCDs
--- NOTE | 2023-11-15 16:55 | CONS.URO ---
Consultation
-
Date/Time Consultation Requested: 11/15/23
Date/Time Consultation Performed: 11/15/23
Requesting Provider: Jim Tai
Medical History
History of Present Illness
Patient is a 83yoF with PMH paroxysmal atrial fibrillation, hypertension, hyperlipidemia, hypothyroidism, and prior lacunar stroke admitted to colorectal surgery for anorectal pain. Patient is pending EUA tomorrow. Urogyn was consulted for future
surgical planning; pending likely robotic rectopexy in the future.
Patient had developed anal pain after recent colonoscopy 10/27/23 which noted around a thickened distal rectum tubular adenoma which may have been an incidental finding. Dr. Tai was planning for future sigmoidoscopy for further evaluation of
suspected anterior rectal wall prolapse and possible rectal ulceration however due to continued perirectal pain she was admitted for EUA and pain control. She is also pending an outpatient proctogram for further surgical planning.
Daughter reports patient having stress incontinence and urinary urgency/frequency often with incontinence for 'many years'. Patient denies feeling of further vaginal prolapse however needs to splint in order to have BM. Patient also has history of
fecal incontinence with diarrhea x many years. Denies current feeling of vaginal prolapse. Denies history of hematuria, dysuria.
Patient has a history of 4 vaginal births with forceps, no other complications noted by patient.
Patient reports having history of unknown vaginal prolapse 10yrs ago at [place]. Patient reports the procedure 'closed up her vagina.'
Surgical history:
Hysterectomy, tubal ligation (unknown if total hysterectomy)
Vaginal prolapse surgery 10yrs ago
Appendectomy
Allergies/Home Medications
Allergies
Allergy/AdvReac Type Severity Reaction Status Date / Time
Penicillins Allergy Unknown Hives,Hives; Verified 11/15/23 14:06
TOLERATES
CEFAZOLIN,Hives,Hives;
TOLERATES
CEFA
NSAIDS (Non-Steroidal Allergy 'stomach Verified 11/15/23 14:06
Anti-Inflamma issues
rofecoxib Allergy 'STOMACH Verified 11/15/23 14:06
ISSUES'
Home Medications
�Medication �Instructions �Recorded �Confirmed �Type
calcium 600 mg (as carbonate)-vit 1 tab PO DAILY Supplement 03/28/14 11/15/23 History
D3 20 mcg (800 unit) chewable
tablet (Caltrate plus D)
multivitamin with folic acid 400 1 tab PO DAILY Supplement 11/10/16 11/15/23 History
mcg tablet (Tab-A-Brandon)
levothyroxine 75 mcg tablet 75 mcg PO DAILY Thyroid 11/21/17 11/15/23 History
B-complex with vitamin C 1 cap PO DAILY Supplement 02/28/18 11/15/23 History
atorvastatin 20 mg tablet 80 mg PO QPM High cholesterol 02/28/18 11/15/23 History
sertraline 50 mg tablet 25 mg PO DAILY Depression 10/07/18 11/15/23 History
calcium polycarbophil 625 mg 1,250 mg PO BID Gastrointestinal 07/16/19 11/15/23 History
tablet (Fiber-Tabs) issue
diltiazem HCl 120 mg 120 mg PO BID Blood pressure 07/16/19 11/15/23 History
capsule,extended release 24 hr
Lactobac no.2-Bifidobac no.1-S. 1 cap PO DAILY Supplement 05/08/20 11/15/23 History
thermo 112.5 billion cell capsule
(High Potency Probiotic)
allopurinol 100 mg tablet 150 mg PO DAILY Gout 05/08/20 11/15/23 History
aspirin 81 mg tablet,delayed 81 mg PO DAILY Blood clot 05/08/20 11/15/23 History
release prevention/tx
furosemide 20 mg tablet 40 mg PO DAILY Fluid 05/08/20 11/15/23 History
retention/Swelling
potassium chloride 10 mEq 10 meq PO DAILY Supplement 05/08/20 11/15/23 History
tablet,extended release(part/cryst)
acetaminophen 650 mg 650 mg PO Q12H PRN pain 10/27/23 11/15/23 History
tablet,extended release
meclizine 25 mg tablet 25 mg PO DAILY PRN vertigo 10/27/23 11/15/23 History
donepezil 10 mg tablet 10 mg PO HS 11/15/23 11/15/23 History
Physical Exam
Vital Signs
Vital Signs
Temp Pulse Resp BP Pulse Ox
97.8 F 71 22 142/69 99
11/15/23 14:00 11/15/23 14:00 11/15/23 14:00 11/15/23 14:00 11/15/23 15:24
Lab / Testing Results
Laboratory Results
11/15/23 14:10
11/15/23 14:10
Physical Exam
GA: Well appearing elderly female in NAD laying comfortably in bed
HEENT: EOMI, normocephalic
Pulm: unlabored respirations on room air
Psych: Appropriate affect
Assessment / Plan
-
- Followup with Dr. Isaac outpatient for further evaluation and planning Office P: [phone]
--- NOTE | 2023-11-15 16:55 | W.PN.GYN ---
Physician Note
-
Patient is a 83yoF admitted to colorectal surgery for anal pain. Patient is pending EUA tomorrow. Urogyn was consulted for future surgical planning; pending likely rectopexy in the future.
Patient has a history of 4 vaginal births with forceps, no other complications noted by patient.
Patient reports having history of unknown vaginal prolapse 10yrs ago at [place]. Patient reports the procedure 'closed up her vagina. ' Daughter reports patient having stress incontinence and urinary urgency/frequency often with incontinence for
'many years'. Patient also has history of fecal incontinence with diarrhea x many years. Patient had developed anal pain after recent colonoscopy 10/27/23. Patient denies feeling of further vaginal prolapse however needs to splint in order to have
BM.
Surgical history:
Hysterectomy, salpingectomy, oopherectomy (unknown date)
Vaginal prolapse surgery 10yrs ago
[2023-11-15 17:40] LABS: Glucose - Point of Care 110 mg/dl (70-99)
[2023-11-15] MEDS: LIPITOR 80 MG PO (17:47)
[2023-11-15] MEDS: CARDIZEM CD 120 MG PO (20:50)
[2023-11-15] MEDS: NSS 1000 IV (20:51)
[2023-11-15] MEDS: ARICEPT 10 MG PO (21:07)
[2023-11-15 21:54] LABS: Glucose - Point of Care 110 mg/dl (70-99)
[2023-11-15 23:40] VITALS: BP 144/58
[2023-11-16] VITALS (8 sets, daily range): BP systolic 139–176; BP diastolic 45–82; BMI 30.9
[2023-11-16] MEDS: SYNTHROID 75 MCG PO (05:03)
--- NOTE | 2023-11-16 06:20 | PTCARENOTE ---
Pt was not able to void since yesterday morning. Voiding trial first time unsuccessful. 2nd voiding trial this morning with an [id number]=[id number] of tea color urine. Bladder scan >346cc and the pt feels pressure. Straight koef=833qd of tea color urine. Pt
denies urinary retention in the past. Will continue to monitor the pt.
--- NOTE | 2023-11-16 07:26 | W.PN.HOSP.TC ---
Addendum entered and electronically signed by Vicky Krishna MD 11/19/23 00:03:
DAMON on CKD III w/ initial Cr improving from 1.9 to 1.6 on IVF prior to OR.
Original Note:
Today's Communication/Plan
-
cont IVF support while npo
IVF switched from NS to LR d/t mild hypernatremia
No need for routine fingersticks, borderline DM A1c 6.5
pain control
NPO pending anal exam under anesthesia w flex sigmoidoscopy as per primary CRS
Assessment / Plan
Assessment / Plan
Physical Exam
General: Well Developed and Well Nourished
HEENT: Normocephalic and Anicteric
Respiratory: Clear and Non Labored Respirations
Cardiac: S1/S2 and Regular Rhythm
GI: Soft and Non Tender
Musculoskeletal: No Clubbing and No Cyanosis
Skin: Warm and Dry
Neuro: AOx3
Psych: Calm
83F paroxysmal atrial fibrillation, hypertension, hyperlipidemia, hypothyroidism, and prior lacunar stroke direct admit under colorectal surgery surgery for persistent debilitating rectal pain results in multiple frequent ED visits. Planned for
anal exam under anesthesia and flex sigmoidoscopy, Hospitalist group consulted for medical management.
Persistent Anal / Rectal Pain
-as per primary colorectal surgery
Paroxysmal Atrial Fibrillation
-Continue diltiazem
-Patient is not on anticoagulation as outpatient due to prior falls and prior rectal sheath hematoma
Essential Hypertension
-Continue diltiazem with hold parameters
Hyperlipidemia
-Continue atorvastatin
Diabetes Mellitus, Type II
-A1c 6.5 borderline diabetes
-discontinue routine fingersticks unnecessary at this time.
Hx Lacunar Stroke - Left Thalamus
-Continue aspirin
DAMON on CKD Stage III
Mild hypernatremia
-Initial Cr 1.9 improved to 1.6 with IVF
-cont IVF support while NPO awaiting procedure
Hypothyroidism
-Continue levothyroxine
Dementia
-Continue donepezil
-Monitor for mood/behavior changes during hospitalization particularly following anesthesia
Depression
-Continue Zoloft
DVT proph: SCDs
I spent a total of 50 minutes with the patient or on the floor. More than 50% of this time involved counseling and coordination of care.
Anticipated Discharge: 24 - 48 hours
Subjective/Interval History
-
Date of Service: November 16, 2023
no acute distress. appears comfortable at this time.
Objective Data
-
Labs:
Laboratory Results
11/16/23
06:00
WBC Pending
Hgb Pending
Hct Pending
Plt Count Pending
Sodium Pending
Potassium Pending
Chloride Pending
Carbon Dioxide Pending
BUN Pending
Creatinine Pending
Glucose Pending
Calcium Pending
Vital Signs:
Vital Signs
Temp Pulse Resp BP Pulse Ox
98.2 F 65 14 144/58 94
11/15/23 23:40 11/15/23 23:40 11/15/23 23:40 11/15/23 23:40 11/15/23 23:40
I&O
11/15/23 11/16/23 11/17/23
06:59 06:59 06:59
Intake Total 960 / 960
Output Total 940 / 940
Balance
[2023-11-16 08:21] LABS: Glycohemoglobin (HgbA1c) 6.5 % (4.0-5.6)
[2023-11-16 08:23] LABS: Glucose - Point of Care 100 mg/dl (70-99)
[2023-11-16 09:00] LABS: % Basophils 0.7 % (0-2); % Eosinophils 2.3 % (0-6); % Immature Granulocytes 0.4 % (0-0.5); % Lymphocytes 26.1 % (20.5-51.1); % Monocytes 8.5 % (1.7-9.3); Absolute Basophils 0.1 10^3/uL (0-0.2); Absolute Eosinophils 0.2 10^3/uL (0-0.7); Absolute Lymphocytes 2.5 10^3/uL (1.2-3.4); Absolute Monocytes 0.8 10^3/uL (0.1-0.6); Absolute Neutrophils 5.8 10^3/uL (1.4-6.5); Hematocrit 40.1 % (37.0-47.0); Hemoglobin 13.1 g/dL (12.0-16.0); Mean Corp Hgb Conc. 32.7 g/dL (33.0-37.0); Mean Corpuscular Hgb 29.3 pg (27.0-31.0); Mean Corpuscular Volume 89.7 fL (81.0-99.0); Mean Platelet Volume 11.1 fL (7.4-10.4); Nucleated Red Blood Cells % 0 %; Platelet Count 224 10^3/uL (130-400); Red Blood Cell Count 4.47 10^6/uL (4.20-5.40); Red Cell Dist. Width 14.4 % (11.5-14.5); White Blood Cell Count 9.4 10^3/uL (4.8-10.8)
[2023-11-16] MEDS: KCL 10 MEQ PO (09:20)
[2023-11-16] MEDS: ASPIR LOW (ENTERIC COATED) 81 MG PO (09:21)
[2023-11-16] MEDS: ZYLOPRIM 150 MG PO (09:21)
[2023-11-16] MEDS: LASIX 40 MG PO (09:22)
[2023-11-16] MEDS: ZOLOFT 25 MG PO (09:22)
[2023-11-16] MEDS: CARDIZEM CD 120 MG PO ×2 (09:22→20:42)
[2023-11-16] MEDS: FLEET PHOSPHATE ENEMA-ADULT 135 ML RECTAL (09:22)
[2023-11-16] MEDS: NSS 1000 IV (09:24)
[2023-11-16 10:16] LABS: Blood Urea Nitrogen 22 mg/dl (7-17); Calcium 9.1 mg/dl (8.4-10.2); Carbon Dioxide 26 mmol/L (22-30); Chloride 107 mmol/L (98-107); Estimated Creatinine Clearance 26 ml/min; Glucose 86 mg/dl (70-99); Potassium 3.6 mmol/L (3.5-5.1); Sodium 146 mmol/L (135-145)
[2023-11-16] MEDS: LR 1000 IV ×2 (11:50→23:04)
[2023-11-16 12:02] LABS: Glucose - Point of Care 98 mg/dl (70-99)
--- NOTE | 2023-11-16 12:02 | CON.MD ---
Consultation - Medical
-
patient seen chart reviewed. discussed w nursing. the patient is an 83 yo woman admitted for rectal pain which has now she says subsided. the patient reports her doctor performed a rectal exam which resulted in cessation of her pain which she has
suffered for about four weeks. the patient has a number of issues related to her colon which are detailed in this chart including having rectal prolapse. the patient does admit she had suffered from depression beginning about three years ago when
she and h sold their house and went to live w her d. this did not go well. previously they had gotten along but living in the same house provoked conflict w d and between patient and h. so much so they started to see a therapist dr beny john
whom mrs quiroga continues to see today and finds helpful. alon does not see herself as depressed currently except when she was in pain. she did not know she was taking zoloft 25 mg an antidp and aricept for memory. she acknowledges she has a
hard time recalling 'names and numbers'. she was fully oriented knew who was president and who was running and who she was voting for. she denies issus w sleep and appetite prior to the rectal pain. she has not been suicidal although she did
comment at the zenith of her pain she wished she would not wake up. that is not current.
past psych hx see above
medical hx see above re rectal pain. hx a fib niddm ckd copd hld hypothyroid gout ascvd htn hx cva overactive bladder osteoporosis surgery for uterine prolapse bp 176/98 cr 1.9 today's pending ibs meniere's ecg w prolonged qtc
substance abuse 'i even hate the smell of etoh'
family hx denied
social resides w h of 60 years. they recently moved o/o d's house into their own. some conflict seeing therapist. grew up in [place] always felt father wished she were a boy. 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
learning disability and feared she could hurt someone by inattention crochets blankets for vets loves the outdoor. many grands and great grands two kids
mse alert pleasant speech nl rate and tone goal oriented no psychosis denies depression affect ok no si aver intelligence insight judgment seem ok
dx adjustment d/o w depressed fx by hx mild cognitive impairment unclear if this is part of a learning disability
plan i am somewhat concerned w qtc. aricept can prolong it. repeat ecg make a decision as to whether to continue it depending on result. check tsh /t4 check b12 folate zoloft is a small dose. if she has issues w depression in the future
could increase dose. would leave it as is for now. will check in w her tomorrow.
--- NOTE | 2023-11-16 13:00 | PTCARENOTE ---
Pt DTV @ 12noon- OOB to BSC; voided 300 ml clear yellow uirne. pt denies urgency/discomfort; stated 'I never had a problem urinating'. Pt placed back in bed; bladder-scanned for [address] Isaac at bedside; ordered Echevarria catheter placed. #16
F Echevarria placed without difficulty; initial return of 400 ml clear yellow urine. Stat-lock to right thigh. pt sheridan procedure well. Will continue to monitor.
--- NOTE | 2023-11-16 17:01 | PTCARENOTE ---
Pt AAO x3, TAYLOR ; OOB to BSC with assist x2; unsteady w/OOB activity. VSS. On room air- pulseox 97%, no SOB noted. Abd large, soft, NPO maintained, for OR procedure this evening. No c/o rectal discomfort this shift. Echevarria P/I mod amts clear yellow
urine. IVF's RL @ 80 ml/hr infusing via Lt forearm site without sx of infiltration. Resting comfortably at present. Will continue to monitor.
[2023-11-16 17:18] LABS: Glucose - Point of Care 84 mg/dl (70-99)
[2023-11-16 18:30] LABS: Folate > 20.0 ng/ml (2.76-20); Vitamin B12 908 pg/ml (239-931)
--- NOTE | 2023-11-16 19:02 | W.IMMPOSTOP ---
Addendum entered and electronically signed by Jim Tai MD 11/16/23 19:12:
Left VM on patient's 's phone updating him.
Original Note:
Surgical Immed Post Op Note
-
Primary Surgeon: Nahun Tai MD
Assisting Surgeon: none
Pre-op Diagnosis: 1) anorectal pain 2) rectal 'polyp'
Post-op Diagnosis: same
Procedure Performed: 1) flexible sigmoidoscopy 2) transanal excision rectal 'polyp'
Anesthesia Type: MAC plus local
Specimen / Cultures: rectal 'polyp' including anterior distal rectal ridge and small polyp--short stitch marking polyp and long stitch marking distal margin of specimen
Estimated Blood Loss: 10 cc
Complications: no immediate
Operative Findings: 1) anterior midline longitudinal distal rectal fold including small (2mm) polyp 2) laxity anterior distal rectal mucosa
Anal tampon placed.
Sending back to med surg.
Resuming diet.
Hopefully home tomorrow.
[2023-11-16 19:19] LABS: Glucose - Point of Care 98 mg/dl (70-99)
--- NOTE | 2023-11-16 20:30 | PTCARENOTE ---
Received patient from PACU. stable vitals. No pain. Drowsy. POC reviewed with patient.
[2023-11-16] MEDS: LIPITOR 80 MG PO (20:42)
[2023-11-16] MEDS: ARICEPT 10 MG PO (22:11)
[2023-11-17 03:26] VITALS: BP 141/53
[2023-11-17] MEDS: SYNTHROID 75 MCG PO (05:14)
[2023-11-17 05:45] VITALS: BMI 31.1
[2023-11-17 07:30] VITALS: BP 99/70
[2023-11-17] MEDS: CARDIZEM CD PO (08:55)
[2023-11-17] MEDS: LASIX PO (08:55)
[2023-11-17] MEDS: ASPIR LOW (ENTERIC COATED) 81 MG PO (09:04)
[2023-11-17] MEDS: KCL PO (09:05)
[2023-11-17] MEDS: ZOLOFT 25 MG PO (09:05)
[2023-11-17] MEDS: ZYLOPRIM 150 MG PO (09:06)
--- NOTE | 2023-11-17 11:19 | W.PN.CRS1 ---
Today's Communication / Plan
-
discharge
Assessment/Plan
-
POD#1 - 1) flexible sigmoidoscopy 2) transanal excision rectal 'polyp'
-OR pathology pending
-Tolerating a diet
-Pain has improved. OKay for d/c today with follow up in the office with Dr. Tai. Discussed with patient who is in agreement
-Outpatient follow up for valdovinos management with Dr. Isaac
Subjective Data
Procedure
11/15- ) flexible sigmoidoscopy 2) transanal excision rectal 'polyp'
Subjective Data
Date of Service: November 17, 2023
Patient states she feels 'much better'. She has no pain since her rectal exam. She denies nausea/vomiting. She is tolerating a diet.
Objective Data
-
Vital Signs
Temp Pulse Resp BP Pulse Ox
97.9 F 70 18 99/70 97
11/17/23 07:30 11/17/23 07:30 11/17/23 07:30 11/17/23 07:30 11/17/23 07:30
Intake & Output
11/16/23 11/17/23 11/18/23
06:59 06:59 06:59
Intake Total 960 / 960 2130 / 2130
Output Total 940 / 940 1400 / 1400
Balance 20 / 20 730 / 730
Intake:
Oral fluids 240 / 240 220 / 220
IV fluids (Total) 720 / 720 1910 / 1910
normosol 50 / 50
Output:
Urine, Valdovinos 1100 / 1100
Urine, Voided 520 / 520 300 / 300
Straight cath output 420 / 420
Other:
Number of approximated MODERATE 1
amounts of urine
Lab Results
11/16/23 07:44
11/16/23 07:44
Physical Exam
-
General: No Acute Distress and AOx3
Abdomen: Soft, Non Distended and Non Tender
Skin: Warm and Dry
--- NOTE | 2023-11-17 11:37 | W.PN.UPDATE ---
Update Note
Progress Note Update
patient seen chart reviewed. patient is in good spirits. her rectal pain has subsided . she is hoping for dc this afternoon. noted qtc is okay. would continue to monitor if she stays on aricept. she is at this point not appearing depressed.
consideration might be given in the future as to whether she needs zoloft. she is looking forward to her granddaughter's wedding in december. psych signing off.
--- NOTE | 2023-11-17 14:02 | CM ---
Addendum entered by Linda Farias 11/17/23 17:29:
Pt and agreeable to d/c to home with [facility]. Referral in [facility] by Irene Garcia.
Addendum entered by Linda Farias 11/17/23 15:47:
Pt and are agreeable to discharge to home with [facility]. Referral sent via [place] Text to Irene Garcia. Case discussed with Dr. Cruz.
PCP is [facility].
Plan: Discharge to home with [facility] today.
Original Note:
CM met with Estrellita at bedside to complete IA. She lives with her in a 1 story home with 5 entry steps. She has been sleeping on a recliner for several weeks, not doing much activity due to anal pain. She worked with therapy today and is
feeling wiped out.
PCP: Unknown - will ask
Pharmacy: [facility]
Estrellita will be discharged with a valdovinos catheter; [facility] offered for RN, PT, OT, however await 's arrival to discuss with him. [facility].
--- NOTE | 2023-11-17 14:52 | W.DS.TRANS ---
DC Summary - Control Panel Builder
-
Discharge Instructions:
Discharge Diagnosis/Procedures Acute Kidney Injury On Chronic Kidney Disease
Stage III
Diet No restrictions
Activity As tolerated
Driving Restrictions No driving for 1 week
Bathing Restrictions OK to Shower
Blood Work Repeat BMP with primary care provider in 1 week
of discharge
Other Services VN,PT,OT
Wound Care You may wear a pad to protect your underwear if
you have any leakage. An anal tampon had been
inserted during your surgery. You may see it
come out over the next few days.
Colace as needed for a stool softener. Daily
sitz baths for 10 minutes at a time for one week
. Tylenol as needed for pain. Maximum amount of
Tylenol is 4,000mg in 24 hours.
Instructions:
Stand-Alone Forms:
Changes to Home Medications: No
Discharge Medications:
DC Medications w/original date entered in [employer]
calcium 600 mg (as carbonate)-vit D3 20 mcg (800 unit) chewable tablet (Caltrate plus D) 1 tab PO DAILY Supplement 03/28/14
multivitamin with folic acid 400 mcg tablet (Tab-A-Brandon) 1 tab PO DAILY Supplement 11/10/16
levothyroxine 75 mcg tablet 75 mcg PO DAILY Thyroid 11/21/17
B-complex with vitamin C 1 cap PO DAILY Supplement 02/28/18
atorvastatin 20 mg tablet 80 mg PO QPM High cholesterol 02/28/18
sertraline 50 mg tablet 25 mg PO DAILY Depression 10/07/18
calcium polycarbophil 625 mg tablet (Fiber-Tabs) 1,250 mg PO BID Gastrointestinal issue 07/16/19
diltiazem HCl 120 mg capsule,extended release 24 hr 120 mg PO BID Blood pressure 07/16/19
Lactobac no.2-Bifidobac no.1-S. thermo 112.5 billion cell capsule (High Potency Probiotic) 1 cap PO DAILY Supplement 05/08/20
allopurinol 100 mg tablet 150 mg PO DAILY Gout 05/08/20
aspirin 81 mg tablet,delayed release 81 mg PO DAILY Blood clot prevention/tx 05/08/20
furosemide 20 mg tablet 40 mg PO DAILY Fluid retention/Swelling 05/08/20
potassium chloride 10 mEq tablet,extended release(part/cryst) 10 meq PO DAILY Supplement 05/08/20
acetaminophen 650 mg tablet,extended release 650 mg PO Q12H PRN pain 10/27/23
meclizine 25 mg tablet 25 mg PO DAILY PRN vertigo 10/27/23
donepezil 10 mg tablet 10 mg PO HS 11/15/23
Home Medication Changes
Pending Results: No
[2023-11-17 15:32] VITALS: BP 146/63
--- NOTE | 2023-11-17 16:21 | VNURNOTE ---
Home Health Liaison met with patient and spouse at bedside to discuss [facility] nurse/therapy, visits, schedule and homebound status. Patient is agreeable and understands that visits at home will be 2-3 x per week to assess valdovinos and teach medical
management. [facility] brochure provided with contact information. Patient is aware that [facility] will contact them for start of care in 1-2 days after discharge from .
[facility] referral completed in [facility].
[2023-11-17] MEDS: FLUAD (65 yr+) 2024-2025 FORMULA 0.5 ML IM (16:36)
--- NOTE | 2023-11-17 19:53 | PN.CDI ---
CDI
- -
CDI:
Physician Documentation Request
Admit Date: 11/15/23 13:22
Dear Colorectal Surgery,
Patient admitted for anal pain.
Discharge Planning Summary: 'Acute Kidney Injury On Chronic Kidney Disease Stage III'
The purpose of this query is not to question medical judgement, but to ensure the accuracy of the conditions reported for your patient.
There is either a lack of clinical support for this condition in the current medical record, or there is a lack of recognized standard criteria to support the condition.
Laboratory Tests
11/15/23 11/16/23
14:10 07:44
Creatinine 1.9 H 1.6 H
Criteria for DAMON*
1 Increase in serum creatinine by > or = to 0.3 mg/dL (> or = to 26.5 micromol/L) within 48 hours, OR
2 Increase in serum creatinine to > or = to 1.5 times baseline, which is known or presumed to have occurred within 7 days, OR
3 Urine volume < 0.5 nL/kg/hour for six hours
The request is for one of the following:
- Additional documentation to support the condition. Indicate if this is in lieu of what may be considered standard criteria, and/or support why the standard criteria may not be present for this patient.
- A more appropriate diagnosis, reflecting the patient's condition
- DAMON remains a known or suspected condition for this patient and is further supported by (include additional documentation in the medical record)
- DAMON has been ruled out and a more appropriate diagnosis for this patient's condition is .
- Other (please specify)
Use of terms such as suspected, likely, concern for, or probable (associated with a specific diagnosis that is being evaluated, monitored, or treated as if it exists) are acceptable and can be coded in the inpatient setting, when documented at the
time of discharge.
Thank you,
Sarah Elizabeth RN, BSN
CDI Specialist
Available via [place] text
Please use your independent medical judgment in providing your response.
--- NOTE | 2023-11-17 20:00 | PN.CDI ---
CDI
- -
CDI:
Physician Documentation Request
Admit Date: 11/15/23 13:22
Dear Doctor Tomi,
Patient admitted for anal pain.
11/15 Hospitalist PN: 'DAMON on CKD Stage III, Mild hypernatremia -Initial Cr 1.9 improved to 1.6 with IVF -cont IVF support while NPO awaiting procedure'
The purpose of this query is not to question medical judgement, but to ensure the accuracy of the conditions reported for your patient.
There is either a lack of clinical support for this condition in the current medical record, or there is a lack of recognized standard criteria to support the condition.
Laboratory Tests
11/15/23 11/16/23
14:10 07:44
Creatinine 1.9 H 1.6 H
Criteria for DAMON*
1 Increase in serum creatinine by > or = to 0.3 mg/dL (> or = to 26.5 micromol/L) within 48 hours, OR
2 Increase in serum creatinine to > or = to 1.5 times baseline, which is known or presumed to have occurred within 7 days, OR
3 Urine volume < 0.5 nL/kg/hour for six hours
The request is for one of the following:
- Additional documentation to support the condition. Indicate if this is in lieu of what may be considered standard criteria, and/or support why the standard criteria may not be present for this patient.
- A more appropriate diagnosis, reflecting the patient's condition
- DAMON remains a known or suspected condition for this patient and is further supported by (include additional documentation in the medical record)
- DAMON has been ruled out and a more appropriate diagnosis for this patient's condition is .
- Other (please specify)
Use of terms such as suspected, likely, concern for, or probable (associated with a specific diagnosis that is being evaluated, monitored, or treated as if it exists) are acceptable and can be coded in the inpatient setting, when documented at the
time of discharge.
Thank you,
Sarah Elizabeth RN, BSN
CDI Specialist
Available via [place] text
Please use your independent medical judgment in providing your response.
== END 2023-11-17 18:11 | disposition home health service (06) | DRG 348 ==
LOC: 4 EAST ACU 13:22
PROVIDERS: Physician Assistant; ADMITTING PHYSICIAN Surgery; CONSULT PHYSICIAN Internal Medicine; CONSULT PHYSICIAN Obstetrics & Gynecology; CONSULT PHYSICIAN Psychiatry & Neurology Psychiatry
PROC: 0DJD8ZZ Inspection of Lower Intestinal Tract, Via Natural or Artificial Opening Endoscopic (ICD-10-PCS; 2023-11-16)
PROC: 0DBP7ZZ Excision of Rectum, Via Natural or Artificial Opening (ICD-10-PCS; 2023-11-16)
PROC: 3E02340 Introduction of Influenza Vaccine into Muscle, Percutaneous Approach (ICD-10-PCS; 2023-11-17)
DX: K62.1 Rectal polyp (principal); E87.0 Hyperosmolality and hypernatremia; N17.9 Acute kidney failure, unspecified; F03.94 Unspecified dementia, unspecified severity, with anxiety; K64.8 Other hemorrhoids; N18.30 Chronic kidney disease, stage 3 unspecified; E11.22 Type 2 diabetes mellitus with diabetic chronic kidney disease; J44.9 Chronic obstructive pulmonary disease, unspecified; M10.9 Gout, unspecified; M81.0 Age-related osteoporosis without current pathological fracture; I12.9 Hypertensive chronic kidney disease with stage 1 through stage 4 chronic kidney disease, or unspecified chronic kidney disease; N32.81 Overactive bladder; I48.0 Paroxysmal atrial fibrillation; K58.9 Irritable bowel syndrome, unspecified; E78.5 Hyperlipidemia, unspecified; E03.9 Hypothyroidism, unspecified; F32.A Depression, unspecified; H81.09 Meniere's disease, unspecified ear; Z96.659 Presence of unspecified artificial knee joint; Z88.0 Allergy status to penicillin; Z88.6 Allergy status to analgesic agent; Z88.1 Allergy status to other antibiotic agents; Z86.73 Personal history of transient ischemic attack (TIA), and cerebral infarction without residual deficits; Z23 Encounter for immunization; Z79.82 Long term (current) use of aspirin; Z79.890 Hormone replacement therapy
CPT/HCPCS: 88305; 74176; 80048; 80053; 81003; 81015; 82607; 82746; 82962; 83036; 83690; 85025; 85610; 85730; 86850; 86900; 86901; 87086; 90662; 93005; 97162; G0008

== ENCOUNTER 2023-12-21 06:16 | Day surgery (SDC) | payer MEDICARE, OTHER, SELFPAY ==
[2023-12-21] VITALS (7 sets, daily range): BP systolic 137–178; BP diastolic 60–74; BMI 29.1
[2023-12-21] MEDS: Pyridium 200 MG PO (13:38)
== END 2023-12-21 14:55 | disposition home or self-care (01) ==
LOC: SDS 06:16
PROVIDERS: ATTENDING PHYSICIAN Urology
DX: N30.20 Other chronic cystitis without hematuria (principal)
CPT/HCPCS: 52224; 88305; C1713

== ENCOUNTER 2024-04-04 18:02 | Emergency (ER) | payer MEDICARE, OTHER, SELFPAY ==
[2024-04-04 18:05] VITALS: BP 114/78
--- NOTE | 2024-04-04 20:10 | ED.GENMED ---
History of Present Illness
<APPI Em - Last Filed: 04/04/24 20:15>
General
Chief Complaint: Fall
Source: patient
Exam Limitations: none
Time Seen by Provider: 04/04/24 19:18
Nursing documentation reviewed up to this point in time: agreed with
History of Present Illness
History of Present Illness:
Patient is an 83-year-old female who presents to the ER complaining of left knee pain. Patient fel several days ago and complains of pain and bruising to the left knee. This knee was replaced years ago. She has been getting around but does
complain of pain and swelling and now reports pain is in her lower leg as well. She has been taking Tylenol for discomfort.
Past History
<PAPI Em - Last Filed: 04/04/24 20:15>
Past History
ED Past Medical History: Arrthythmia (Atrial fib), COPD, CVA (No residual), GERD (hiatal hernia), HTN, Hypercholesterolemia, NIDDM, Hypothyroidism and Other (Meniere's, IBS, PNA, Diverticulitis, Second hand emphysema, gastroenteritis, Stress incont,
Uterine and bowel prolpase)
ED Past Surgical History: Appendectomy, Gynecological (tubel, Partial Hysterectomy), Orthopedic (Bilateral knee replacements, Right knee X 2 and left knee once, Carpal tunnel, ), Tonsilectomy, Urological (Prolapsed bladder) and Other
(Thyroidectomy, Cataracts, Right and left breast cyst)
Social History
Tobacco: Non-smoker (Second hand smoke)
Alcohol: None
Drug: None
Personal:
Living: with family
Employment: Retired
Family History
Family History: Other (COPD )
Review of Systems
<PAPI Em - Last Filed: 04/04/24 20:15>
Review of Systems
Allergies reviewed?: Yes
All Other Systems: ROS reviewed and negative except as documented in HPI and ROS
Constitutional: Reports no symptoms
Musculoskeletal: Reports other (left knee pain)
Skin: Reports no symptoms
Phy Exam
<PAPI Em - Last Filed: 04/04/24 20:15>
General Physical Exam
General Presentation: no apparent distress
General age: appears stated age
General Skin: warm and dry
General Habitus: normal
General Mental: alert
General Hydration: appears well hydrated
Neurological Exam
Neurological Exam: alert and oriented x3
Musculoskeletal Exam
Musculoskeletal Exam: other (lle with strong pulses + old vertical scar + swelling/ecchymosis to knee , strong pulses ,tender to anterior knee and mild tenderness to prox left posterior calf ; compartments are soft )
Skin Exam
Skin Exam: normal color and warm/dry
Psychiatric Exam
Psychiatric Exam: normal mood/affect
Course
<PAPI Em - Last Filed: 04/04/24 20:15>
Orders/Labs/Results
Orders:
Orders
04/04/24 18:05
Knee, Left 4 or More Views [CR Knee - Left 4 Or More View*] Urgent
Comment:
Reason For Exam: pain and swelling
04/04/24 19:48
Venous Doppler Lwr Ext Left [US Periph Venous LOWER Ext LT] Urgent
Comment:
Reason For Exam: pain in calf s/p fall
04/04/24 21:16
Oxycodone [Roxicodone] 5 mg PO NOW STA
Vital Signs
Initial and Last Documented VS:
Initial Vital Signs
Temp Pulse Resp BP Pulse Ox
98.8 F 73 17 114/78 99
04/04/24 18:05 04/04/24 18:05 04/04/24 18:05 04/04/24 18:05 04/04/24 18:05
Last Documented Vital Signs
Temp Pulse Resp BP Pulse Ox
98.8 F 62 17 152/73 99
04/04/24 18:05 04/04/24 21:28 04/04/24 18:05 04/04/24 21:28 04/04/24 21:28
<Mina Allen PA-C - Last Filed: 04/04/24 23:41>
Orders/Labs/Results
Orders:
Orders
04/04/24 18:05
Knee, Left 4 or More Views [CR Knee - Left 4 Or More View*] Urgent
Comment:
Reason For Exam: pain and swelling
04/04/24 19:48
Venous Doppler Lwr Ext Left [US Periph Venous LOWER Ext LT] Urgent
Comment:
Reason For Exam: pain in calf s/p fall
04/04/24 21:16
Oxycodone [Roxicodone] 5 mg PO NOW STA
Vital Signs
Initial and Last Documented VS:
Initial Vital Signs
Temp Pulse Resp BP Pulse Ox
98.8 F 73 17 114/78 99
04/04/24 18:05 04/04/24 18:05 04/04/24 18:05 04/04/24 18:05 04/04/24 18:05
Last Documented Vital Signs
Temp Pulse Resp BP Pulse Ox
98.8 F 62 17 152/73 99
04/04/24 18:05 04/04/24 21:28 04/04/24 18:05 04/04/24 21:28 04/04/24 21:28
<PAPI Em - Last Filed: 04/04/24 20:15>
MDM/Problems Addressed
MDM/Problems Addressed:
Symptoms are consistent with contusion will check ultrasound to ensure no DVT
<Mina Allen PA-C - Last Filed: 04/04/24 23:41>
*Critical Care Note
Total Time (30-74mins, 75-104mins- exclusive of procedures): Not Applicable
<Mina Allen PA-C - Last Filed: 04/04/24 23:41>
Update Note
Update Note:
Assumed care of patient from Idalia Lambert NP pending ultrasound. Ultrasound ultimately was negative. Patient examined, large hematoma to the left anterior medial knee, nonpulsatile, likely will need Ortho evaluation and PT, patient will
follow-up with her orthopedic surgeon as an outpatient
ED Attending Note
<PAPI Em - Last Filed: 04/04/24 20:15>
-
Portions of this chart may have been created with voice recognition software.� Occasional wrong word or��sound alike� substitutions may have occurred due to the inherent limitations of voice recognition software.
Discharge Plan
Departure
Patient Disposition: Home (Routine Discharge)
Date of Disposition: 04/04/24
Time of Disposition: 21:05
Patient with high blood pressure during this ER visit?: No
Condition: Fair
Covid-19: Not Applicable
Discharge Problem:
Contusion of knee
Instructions: Contusion (DC)
Prescriptions:
New
oxycodone 5 mg tablet
5 mg PO Q8H PRN (Reason: Pain) Qty: 8 0RF
No Action
levothyroxine 75 MCG tablet
75 mcg PO DAILY
Patient Comments:
'Maybe 2 days ago'
atorvastatin 20 MG tablet
80 mg PO QPM
sertraline 50 MG tablet
25 mg PO DAILY
Patient Comments:
'maybe 2 days ago'
diltiazem HCl 120 MG capsule,extended release 24hr
120 mg PO BID
Patient Comments:
'maybe 2 days ago'
allopurinol 100 MG tablet
150 mg PO DAILY
aspirin 81 MG tablet,delayed release (DR/EC)
81 mg PO DAILY
furosemide 20 MG tablet
40 mg PO DAILY
Patient Comments:
'maybe 2 days ago'
potassium chloride 10 MEQ tablet,ER particles/crystals
10 meq PO DAILY
Patient Comments:
'maybe 2 days ago'
meclizine 25 mg Tablet
25 mg PO Q8HPRN PRN (Reason: vertigo)
donepezil 10 mg Tablet
10 mg PO HS
multivitamin [Multi-Vitamins] Tablet
1 tab PO DAILY
loperamide [Imodium] 2 mg Capsule
2 mg PO Q6H PRN (Reason: diarrhea)
vitamin B complex Tablet
1 tab PO DAILY
calcium polycarbophil 625 mg Tablet
1,250 mg PO DAILY
calcium carbonate-vitamin D3 [Calcium 600 + D(3)] 600 mg-5 mcg (200 unit) Tablet
1 tab PO BID
biotin 10,000 mcg Capsule
10,000 mcg PO DAILY
docusate sodium [Colace] 100 mg Capsule
100 mg PO DAILY PRN (Reason: constipation)
magnesium 250 mg Tablet
250 mg PO DAILY
Probiotic 10 billion cell Capsule
10,000 mmu cells PO DAILY
Referrals:
Danny Watt MD [Active] -
Scooter Green MD [Family Provider] -
Activity Restrictions/Additional Instructions:
Continue to keep elevated as much as possible use Tylenol for pain and ice. Follow-up with orthopedics in the next several days return if any worsening of symptoms.
You may Marquis wrap for support but remove at night while sleeping
Interventions
Interventions:
*Risk Screen - Suicide Last Done: 04/04/24 18:06
*General Assessment Last Done: 04/04/24 18:06
*Neglect/Abuse Screening Last Done: 04/04/24 18:06
*ED COVID-19 Vaccine History Last Done: 04/04/24 18:06
*Nursing Disposition Last Done: 04/04/24 21:50
ED-Musculoskeletal Assessment Last Done: 04/04/24 18:30
ED- Neurological Assessment Last Done: 04/04/24 18:30
ED-Skin Assessment Last Done: 04/04/24 18:30
Discharge Date and Time
Discharge Date/Time: 04/04/24 21:55
Print Language: YAKUT
[2024-04-04 21:28] VITALS: BP 152/73
[2024-04-04] MEDS: ROXICODONE 5 MG PO (21:30)
== END 2024-04-04 21:55 | disposition home or self-care (01) ==
LOC: EMR 18:02
PROVIDERS: EMERGENCY PHYSICIAN Emergency Medicine; FAMILY PHYSICIAN Family Medicine
DX: S80.02XA Contusion of left knee, initial encounter (principal); R22.42 Localized swelling, mass and lump, left lower limb; W19.XXXA Unspecified fall, initial encounter; I48.91 Unspecified atrial fibrillation; K21.9 Gastro-esophageal reflux disease without esophagitis; E78.00 Pure hypercholesterolemia, unspecified; I10 Essential (primary) hypertension; K58.9 Irritable bowel syndrome, unspecified; Z86.73 Personal history of transient ischemic attack (TIA), and cerebral infarction without residual deficits; Z90.49 Acquired absence of other specified parts of digestive tract; Z96.653 Presence of artificial knee joint, bilateral
CPT/HCPCS: 99284; 73564; 93971

== ENCOUNTER 2024-04-18 07:21 | Inpatient (IN) | payer MEDICARE, OTHER, SELFPAY ==
[2024-04-17] VITALS (8 sets, daily range): BP systolic 112–174; BP diastolic 48–72; BMI 31.5; BMI 30.8
--- NOTE | 2024-04-17 15:20 | ED.GENMED ---
History of Present Illness
General
Chief Complaint: Breathing Problem
Time Seen by Provider: 04/17/24 15:19
History of Present Illness
History of Present Illness:
TIME OF INITIAL ENCOUNTER: 3:20 PM
HPI: The patient presents with 2 days of nonproductive dry cough. She reports a history of emphysema but she relates to secondhand smoke and states that she never smoked. Due to the coughing, her chest has been sore. She has had decreased
appetite.
EXAM:
GENERAL: The patient appears uncomfortable and has a frequent dry cough
HEENT: Moist oral mucosa
CARDIOVASCULAR: No murmurs, normal heart rate, regular rhythm, mild anterior chest wall tenderness
PULMONARY: Mild respiratory distress, breath sounds are slightly decreased equally with some wheeze
ABDOMEN: Soft with no peritoneal signs, no tenderness
NEUROLOGIC: Good strength all extremities, no coordination deficits
PSYCHIATRIC: Appears to have some mild cognitive deficits and appears slightly confused at times, fair insight and judgment
EXTREMITIES: Nontender, no edema, moves all extremities equally
SKIN: No rash, no lesions
NUMBER AND COMPLEXITY OF PROBLEMS ADDRESSED AT THE ENCOUNTER
� Chronic conditions affecting care: Emphysema/COPD, high blood pressure, hyperlipidemia, diabetes
� Acute Exacerbation and/or Progression of Chronic Illness: This is an acute problem
� Differential Diagnosis includes: COPD exacerbation, viral syndrome, pneumonia
AMOUNT AND/OR COMPLEXITY OF DATA TO BE REVIEWED AND ANALYZED
� I performed an independent evaluation of and my interpretation is:
EKG: Sinus 59, normal axis, nonspecific ST abnormality, first-degree AV block
CT:
X-rays: Chest x-ray unremarkable
Laboratory Studies: White count and hemoglobin are normal, creatinine is 1.5 which is near recent baseline, potassium is 3.3, bicarb is 31, BNP is 264, COVID and flu negative
Other:
� Review of other/old records: The patient was admitted here with acute on chronic kidney disease in November 2023
� Clinical information was obtained by an independent historian: I spoke to at bedside
� Prescriptions/Medications Considered but not given:
� Further testing considered but not performed:
RISK OF COMPLICATIONS AND/OR MORBIDITY OR MORTALITY OF PATIENT MANAGEMENT
� Social determinants of health affecting care: Lives at home
� Discussion with other providers: Hospitalist, Dr. Schwarz for admission at 5:20 PM
� Escalation of care including admission/observation vs risk of discharge considered: The patient presents with cough and pain that worsens when she coughs. Chest x-ray is clear. Room air sats are about 94%. He does report
history of COPD. She denies smoking history. Gave nebs and steroids.
ANY OTHER UPDATES:
5:15 PM: The patient reports no significant improvement. Presumed COPD exacerbation. Very low suspicion for PE as painful coughing is one of her main symptoms. She does have some mild cognitive deficits but does not appear well enough to be
discharged at this time as she is slightly tachypneic with some increased work of breathing.
Past History
Past History
ED Past Medical History: Arrthythmia (Atrial fib), COPD, CVA (No residual), GERD (hiatal hernia), HTN, Hypercholesterolemia, NIDDM, Hypothyroidism and Other (Meniere's, IBS, PNA, Diverticulitis, Second hand emphysema, gastroenteritis, Stress incont,
Uterine and bowel prolpase)
ED Past Surgical History: Appendectomy, Gynecological (tubel, Partial Hysterectomy), Orthopedic (Bilateral knee replacements, Right knee X 2 and left knee once, Carpal tunnel, ), Tonsilectomy, Urological (Prolapsed bladder) and Other
(Thyroidectomy, Cataracts, Right and left breast cyst)
Social History
Tobacco: Non-smoker (Second hand smoke)
Alcohol: None
Drug: None
Personal:
Living: with family
Employment: Retired
Family History
Family History: Other (COPD )
Phy Exam
Physical Exam
Physical Exam:
See HPI
Scores
Heart Failure Risk
Heart Failure Risk Score: Not Applicable
Course
Orders/Labs/Results
Orders:
Orders
04/17/24 15:26
0.9% Sodium Chloride 500 ml [Nss] 500 ml IV BOLUS
Dexamethasone Sod Phosphate [Decadron] 10 mg IV NOW STA
Ipratropium/Albuterol Sulfate [Duoneb] 3 ml INH R NOW STA
CR Chest - 2 Views Urgent
Comment:
Reason For Exam: cough sob copd
04/17/24 16:04
Electrocardiogram (*1) Urgent
Reason for Study: Shortness of Breath
EKG- Treatment ONCE
04/17/24 16:36
COVID-19 Antigen Urgent
Source: Nasal Swab
Complete Blood Count/With Diff Urgent
Comprehensive Metabolic Panel Urgent
NT-proBNP Urgent
Influenza A+B Rapid Molecular Urgent
DEMARCO Source: Nasal Swab
Specimen Description:
04/17/24 17:17
Ipratropium/Albuterol Sulfate [Duoneb] 3 ml INH R NOW STA
04/17/24 17:21
Potassium Chloride Powder [Klor-Con] 40 meq PO NOW STA
Abnormal Lab Results
04/17/24
16:36
MPV 10.9 H fL
(7.4-10.4)
Absolute Monos (auto) 0.7 H 10^3/uL
(0.1-0.6)
Monocytes % 9.4 H %
(1.7-9.3)
Potassium 3.3 L mmol/L
(3.5-5.1)
Carbon Dioxide 31 H mmol/L
(22-30)
BUN 42 H mg/dl
(7-17)
Creatinine 1.5 H mg/dL
(0.6-1.0)
04/17/24 16:36
04/17/24 16:36
Vital Signs
Initial and Last Documented VS:
Initial Vital Signs
Temp Pulse Resp BP Pulse Ox
36.6 C 81 20 112/72 99
04/17/24 15:10 04/17/24 15:10 04/17/24 15:10 04/17/24 15:10 04/17/24 15:10
Last Documented Vital Signs
Temp Pulse Resp BP Pulse Ox
36.6 C 59 17 174/58 98
04/17/24 15:10 04/17/24 16:45 04/17/24 16:45 04/17/24 16:00 04/17/24 16:57
*Critical Care Note
Total Time (30-74mins, 75-104mins- exclusive of procedures): Not Applicable
ED Attending Note
-
Portions of this chart may have been created with voice recognition software.� Occasional wrong word or��sound alike� substitutions may have occurred due to the inherent limitations of voice recognition software.
Discharge Plan
Departure
Patient Disposition: Admit
Date of Disposition: 04/17/24
Time of Disposition: 17:19
Presentation/result/management discussed w/ accepting MD/DO: Hospitalist
Discharge Problem:
Acute exacerbation of chronic obstructive pulmonary disease
Prescriptions:
No Action
levothyroxine 75 MCG tablet
75 mcg PO DAILY
Patient Comments:
'Maybe 2 days ago'
atorvastatin 20 MG tablet
80 mg PO QPM
sertraline 50 MG tablet
25 mg PO DAILY
Patient Comments:
'maybe 2 days ago'
diltiazem HCl 120 MG capsule,extended release 24hr
120 mg PO BID
Patient Comments:
'maybe 2 days ago'
allopurinol 100 MG tablet
150 mg PO DAILY
aspirin 81 MG tablet,delayed release (DR/EC)
81 mg PO DAILY
furosemide 20 MG tablet
40 mg PO DAILY
Patient Comments:
'maybe 2 days ago'
potassium chloride 10 MEQ tablet,ER particles/crystals
10 meq PO DAILY
Patient Comments:
'maybe 2 days ago'
meclizine 25 mg Tablet
25 mg PO Q8HPRN PRN (Reason: vertigo)
donepezil 10 mg Tablet
10 mg PO HS
multivitamin [Multi-Vitamins] Tablet
1 tab PO DAILY
loperamide [Imodium] 2 mg Capsule
2 mg PO Q6H PRN (Reason: diarrhea)
vitamin B complex Tablet
1 tab PO DAILY
calcium polycarbophil 625 mg Tablet
1,250 mg PO DAILY
calcium carbonate-vitamin D3 [Calcium 600 + D(3)] 600 mg-5 mcg (200 unit) Tablet
1 tab PO BID
biotin 10,000 mcg Capsule
10,000 mcg PO DAILY
docusate sodium [Colace] 100 mg Capsule
100 mg PO DAILY PRN (Reason: constipation)
magnesium 250 mg Tablet
250 mg PO DAILY
Probiotic 10 billion cell Capsule
10,000 mmu cells PO DAILY
oxycodone 5 mg tablet
5 mg PO Q8H PRN (Reason: Pain) Qty: 8 0RF
Referrals:
Scooter Green MD [Family Provider] -
Interventions
Interventions:
*Risk Screen - Suicide Last Done: 04/17/24 16:57
*General Assessment Last Done: 04/17/24 16:57
*Neglect/Abuse Screening Last Done: 04/17/24 16:57
*ED- Fall Risk Assessment Last Done: 04/17/24 16:57
*ED COVID-19 Vaccine History Last Done: 04/17/24 16:57
ED- Cardiac Assessment Last Done: 04/17/24 16:57
ED- Pulmonary Assessment Last Done: 04/17/24 16:57
Discharge Date and Time
Print Language: SPANISH
--- NOTE | 2024-04-17 15:30 | EDRN ---
Dr. Potter in w/ pt at this time.
[2024-04-17] MEDS: DECADRON 10 MG IV (16:42)
[2024-04-17] MEDS: DUONEB 3 ML INH ×3 (16:42→20:32)
[2024-04-17] MEDS: NSS 500 IV (16:43)
[2024-04-17 16:51] LABS: % Basophils 0.3 % (0-2); % Eosinophils 0.9 % (0-6); % Immature Granulocytes 0.5 % (0-0.5); % Lymphocytes 37.5 % (20.5-51.1); % Monocytes 9.4 % (1.7-9.3); % Neutrophils 51.4 % (42.2-75.2); Absolute Eosinophils 0.1 10^3/uL (0-0.7); Absolute Monocytes 0.7 10^3/uL (0.1-0.6); Absolute Neutrophils 4.1 10^3/uL (1.4-6.5); Hematocrit 40.1 % (37.0-47.0); Hemoglobin 13.4 g/dL (12.0-16.0); Mean Corp Hgb Conc. 33.4 g/dL (33.0-37.0); Mean Corpuscular Hgb 29.6 pg (27.0-31.0); Mean Corpuscular Volume 88.7 fL (81.0-99.0); Mean Platelet Volume 10.9 fL (7.4-10.4); Nucleated Red Blood Cells % 0 %; Platelet Count 197 10^3/uL (130-400); Red Blood Cell Count 4.52 10^6/uL (4.20-5.40); Red Cell Dist. Width 14.1 % (11.5-14.5); White Blood Cell Count 7.9 10^3/uL (4.8-10.8)
[2024-04-17 17:00] LABS: ALT (SGPT) 20 U/L (0-35); AST (SGOT) 36 U/L (14-36); Albumin 4.2 g/dl (3.5-5.0); Alkaline Phosphatase 112 U/L (38-126); Blood Urea Nitrogen 42 mg/dl (7-17); Calcium 9.5 mg/dl (8.4-10.2); Carbon Dioxide 31 mmol/L (22-30); Chloride 99 mmol/L (98-107); Estimated Creatinine Clearance 27 ml/min; Glucose 88 mg/dl (70-99); Potassium 3.3 mmol/L (3.5-5.1); Sodium 142 mmol/L (135-145); Total Bilirubin 0.8 mg/dl (0.2-1.3); eGFR 34.36
[2024-04-17 17:03] LABS: COVID-19 Antigen Negative (Negative)
[2024-04-17 17:09] LABS: NT-proBNP 264 pg/ml
--- NOTE | 2024-04-17 17:30 | HPS.HSE ---
Family Physician
-
Family Physician: Scooter Green
Chief Complaint
-
shortness of breath
History of Present Illness
Patient is a 83-year-old female with past medical history significant for paroxysmal atrial fibrillation, essential hypertension, hypothyroidism, CKD IIIb, COPD, and dementia who presented to [facility] ED for evaluation of shortness of
breath. Patient reports that she has had ongoing shortness of breath for approximately 1 week and it has gradually got worse. She reports associated body aches and dry cough. Patient denies any fever, chills, chest pain, nausea. vomiting,
constipation, diarrhea or urinary symptoms.
Medical History
Past Medical History
Past Medical History: Reports Other
Additional Past Medical History:
paroxysmal atrial fibrillation
essential hypertension
hypothyroidism
CKD IIIb
COPD
dementia
gout
Past Surgical History: Reports Other
Additional Past Surgical History:
tubal ligation
cataract extraction
appendectomy
tonsillectomy
left lobe thyroidectomy
RTKA
LTKA
bladder prolapse repair
sigmoidoscopy, transanal excision rectal polyp
Social History
Tobacco: Non-smoker
Alcohol: None
Drug: None
Personal:
Living: With Family
Employment: Retired
Family History
Family History: Other (Mother: CAD, DM)
Allergies / Home Medications
Allergies reflects when Allergies were last updated in [email or web address].
Home Medications with original date entered in [email or web address]
Allergy/Medication List:
Allergies
Allergy/AdvReac Type Severity Reaction Status Date / Time
Penicillins Allergy Unknown Hives,Hives; Verified 04/17/24 15:15
TOLERATES
CEFAZOLIN,Hives,Hives;
TOLERATES
CEFA
NSAIDS (Non-Steroidal Allergy 'stomach Verified 04/17/24 15:15
Anti-Inflamma issues'
rofecoxib Allergy 'STOMACH Verified 04/17/24 15:15
ISSUES'
Home Medications
levothyroxine 75 mcg tablet 75 mcg PO DAILY Thyroid 11/21/17
sertraline 50 mg tablet 25 mg PO DAILY Depression 10/07/18
diltiazem HCl 120 mg capsule,extended release 24 hr 120 mg PO BID Blood pressure 07/16/19
allopurinol 100 mg tablet 150 mg PO DAILY Gout 05/08/20
potassium chloride 10 mEq tablet,extended release(part/cryst) 10 meq PO DAILY Supplement 05/08/20
meclizine 25 mg tablet 25 mg PO Q8HPRN PRN vertigo 10/27/23
donepezil 10 mg tablet 10 mg PO HS 11/15/23
aspirin 81 mg chewable tablet 81 mg PO DAILY 04/17/24
atorvastatin 80 mg tablet 80 mg PO DAILY 04/17/24
furosemide 40 mg tablet 40 mg PO DAILY 04/17/24
Review of Systems
-
History Source: Patient
Constitutional: Reports No Symptoms
EENT: Reports No Symptoms
Respiratory: Reports Cough and Trouble Breathing
Cardiac: Reports No Symptoms
Abdomen/GI: Reports No Symptoms
: Reports No Symptoms
Musculoskeletal: Reports No Symptoms
Skin: Reports No Symptoms
Neurological: Reports No Symptoms
Endocrine: Reports No Symptoms
Hematologic/Lymphatic: Reports No Symptoms
Psych: Reports No Symptoms
Physical Exam
Vital Signs
Vital Signs
Temp Pulse Resp BP Pulse Ox
97.8 F 59 17 174/58 98
04/17/24 15:10 04/17/24 16:45 04/17/24 16:45 04/17/24 16:00 04/17/24 16:57
Physical Exam
General: Well Developed and Well Nourished
HEENT: NormoCephalic, Moist mucous membranes, Atraumatic, [place] Conjunctivae, Nose Appears Normal and Ears Appear Normal
Respiratory: Clear and Wheezes
Cardiac: S1/S2, Regular Rhythm and JVD; No Murmur, Rub or Gallop
GI: Soft, Non Tender, Non Distended and Normal Bowel Sounds; No Organomegaly
Rectal: Deferred by Provider
Genito-urinary: Deferred by me
Musculoskeletal: No Clubbing, No Cyanosis, No Edema and Other (LLE bruising noted (patient reports fall a few days ago))
Skin: No Rash
Neuro: Nonfocal/grossly intact
Psych: Calm
Laboratory Results
-
04/17/24 16:36
04/17/24 16:36
Laboratory Results
Total Bilirubin 0.8 mg/dl (0.2-1.3) 04/17/24 16:36
AST 36 U/L (14-36) 04/17/24 16:36
ALT 20 U/L (0-35) 04/17/24 16:36
Alkaline Phosphatase 112 U/L (38-126) 04/17/24 16:36
Data Reviewed
-
Diagnostic Radiology: Report Reviewed by me (CXR: The lungs appear radiographically clear. Cardiomegaly with no evidence for pulmonary edema or pleural effusion.)
Medical Tests (Nuc Med, Echo, EKG etc): Report Reviewed by me (EKG: SINUS BRADYCARDIA WITH 1ST DEGREE A-V BLOCK)
Lab Data: Labs Reviewed by me (BUN 42, Creat 1.5, K+ 3.3, )
Impression/Plan
-
IMPRESSION/PLAN:
#COPD exacerbation
#HFpEF
CXR: The lungs appear radiographically clear.
Cardiomegaly with no evidence for pulmonary edema or pleural effusion.
Covid: Negative
Influenza: negative
EKG: SINUS BRADYCARDIA WITH 1ST DEGREE A-V BLOCK
- admit to telemetry
- start prednisone 40mg daily
- IV Lasix
- DuoNebs
- daily weights
- ECHO
- Consult PT/OT
- supportive care
#DM II
diet controlled
A1C 6.5 (11/15/23)
- AccuCheck AC & HS
- SSI
#paroxysmal atrial fibrillation
- continue diltiazem
#essential hypertension
- continue diltiazem and furosemide
#hypothyroidism
- continue levothyroxine
#CKD IIIb
BUN 42, Creat 1.5
appears to be baseline
- monitor BMP
#dementia
- continue donepezil
#depression
- continue sertraline
#gout
- continue allopurinol
Code status: DNR
DVT Prophylaxis: Heparin Sq
--- NOTE | 2024-04-17 17:30 | PHANOTE ---
med rec tech(04/17/24)-Attempted to interview patient, she did not have her list and she did not know her medications. Family in room also did not know. Utilized [facility] and [facility] dated 04/17/34 to verify home med list.
--- NOTE | 2024-04-17 17:49 | EDRN ---
Natalie TURPIN in room w/ pt at this time.
[2024-04-17] MEDS: KLOR-CON 40 MEQ PO (17:51)
--- NOTE | 2024-04-17 17:51 | W.PN.UPDATE ---
Update Note
Progress Note Update
This is an addendum to H&P written by BIODIESEL ENGINEERING MANAGER Natalie Mejía
I saw and examined the patient.
The BIODIESEL ENGINEERING MANAGER's note was reviewed and I agree with the note.
Comment:
Ms. Estrellita Carty is a 83 yo woman with hx atrial fibrillation, CVA, GERD, HTN, HLD, COPD (2nd hand smoke), NIDDM, Hypothyroidism, CKD (baseline creatinine 1.5-1.8) who presents to the ER complaining of worsening cough.
Triage VS: T 36.6 C, P 81, RR 20, BP 112/72, SpO2 99%
On exam patient with intermittent cough, tachypnea. She has elevated JVP, + wheezing on exam. No LE swelling.
LABS: WBC 7.9, Hg 13.4, PLT 197, Na 142, K+ 3.3, CO2 31, BUN 42, Cr 1.5, Glucose 88, liver enzymes WNL
Covid and Influenza negative
CXR
IMPRESSION:
The lungs appear radiographically clear.
Cardiomegaly with no evidence for pulmonary edema or pleural effusion
Cough and Shortness of Breath
Heart Failure preserved EF Acute Exacerbation
COPD Exacerbation
-patient has JVP on exam and wheezing. She currently is denying significant relief from nebulizers, suspect HF playing a larger role
-admit to telemetry
-lasix 40mg IV QD including now (K repleted in ER)
-daily weights, strict I/O
-repeat TTE
-continue to treat COPD: QID nebs, start Prednisone 40mg PO QD tomorrow
-PT/OT
Hx CVA
-BARREL CHARRER HELPER Aspirin/Statin
HTN
-BARREL CHARRER HELPER Diltiazem
Depression
-BARREL CHARRER HELPER Sertraline
Hypothyroidism - BARREL CHARRER HELPER Synthroid
Diet Controlled Diabetes
-ISS
DVT PPx
--- NOTE | 2024-04-17 18:08 | EDRN ---
Dr. Schwarz in to see pt at this time.
[2024-04-17] MEDS: LASIX 40 MG IV (19:13)
[2024-04-17] MEDS: CARDIZEM CD 120 MG PO (20:09)
[2024-04-17] MEDS: ARICEPT 10 MG PO (20:09)
[2024-04-17 21:33] LABS: Glucose - Point of Care 189 mg/dl (70-99)
--- NOTE | 2024-04-17 22:04 | PTCARENOTE ---
admitted from ed to 1142-2. ax3 but forgetful. 98% on room air. lungs diminished - afebrile. inc of large amt off loose stool three times- pt states she has been having diarrhea for a few days- cardiology physician notified- samples sent for cdiff/norovirus and
placed on enhanced precautions. large bruises on left leg and hip area in various degrees of age/healing. pt fell twice last week but has walked since without decreased room per her report. refused bed alarm and agrees to ringing for all assistance.
sinus with first degree. poc care reviewed.
[2024-04-18] VITALS (8 sets, daily range): BP systolic 118–145; BP diastolic 50–84; PULSE 66–102; O2SAT 84–94; BMI 30.8
[2024-04-18] MEDS: HEPARIN 5000 UNITS SC ×4 (00:35→23:56)
[2024-04-18] MEDS: TYLENOL 650 MG PO (00:38)
[2024-04-18] MEDS: SYNTHROID 75 MCG PO (05:57)
[2024-04-18 07:05] LABS: Blood Urea Nitrogen 43 mg/dl (7-17); Calcium 9.3 mg/dl (8.4-10.2); Carbon Dioxide 27 mmol/L (22-30); Chloride 105 mmol/L (98-107); Estimated Creatinine Clearance 25 ml/min; Glucose 197 mg/dl (70-99); Potassium 3.6 mmol/L (3.5-5.1); Sodium 142 mmol/L (135-145)
[2024-04-18] MEDS: DUONEB 3 ML INH (07:14)
--- NOTE | 2024-04-18 07:16 | W.PN.HOSP.TC ---
Today's Communication/Plan
-
PT/OT
cont prednisone
glycemic control
Start Gabapentin
Duoneb prn
Assessment / Plan
Assessment / Plan
Physical Exam
General: No acute distress resting comfortably in bed
HEENT: NormoCephalic, Moist mucous membranes, Atraumatic, [place] Conjunctivae
Respiratory: Clear
Cardiac: S1/S2, Regular Rhythm, no JVD; No Murmur, Rub or Gallop
GI: Soft, Non Tender, Non Distended and Normal Bowel Sounds
Musculoskeletal: No Clubbing, No Cyanosis, No Edema
Skin: No Rash
Neuro: AOx3 conversant coherent
Psych: Calm
83F p Afib htn hypothyroidism CKDIII Dementia COPD here with suspected COPD vs CHF exacerbation (less likely)
#Post-viral bronchitis vs COPD exacerbation vs Heart Failure (least likely)
CXR: The lungs appear radiographically clear.
Cardiomegaly with no evidence for pulmonary edema or pleural effusion.
Covid: Negative
Influenza: negative
EKG: SINUS BRADYCARDIA WITH 1ST DEGREE A-V BLOCK
- monitor on Tele
- cont prednisone 40mg daily
- IV Lasix converted back to home PO dose
-BNP low, not suggestive of heart failure
- DuoNebs prn
- daily weights
- ECHO appreciated preserved EF 55%
- Consult PT/OT appreciated SNF rehab
#DM II
diet controlled
A1C 6.5 (11/15/23)
- AccuCheck AC & HS
- SSI
#Hyperalgesia/Neuropathy
start Gabapentin 100 mg TID
#paroxysmal atrial fibrillation
- continue diltiazem
#essential hypertension
- continue diltiazem and furosemide
#hypothyroidism
- continue levothyroxine
#CKD IIIb
BUN 42, Creat 1.5
appears to be baseline
- monitor BMP
#dementia
- continue donepezil
#depression
- continue sertraline
#gout
- continue allopurinol
Code status: DNR
DVT Prophylaxis: Heparin Sq
discussed with patient and patient's Mina
I spent a total of 50 minutes with the patient or on the floor. More than 50% of this time involved counseling and coordination of care.
Anticipated Discharge: 24 - 48 hours
Subjective/Interval History
-
Date of Service: April 18, 2024
No acute distress resting comfortably in bed. Stable respiratory status on room air.
Objective Data
-
Labs:
Laboratory Results
04/18/24
05:56
Sodium 142
Potassium 3.6
Chloride 105
Carbon Dioxide 27
BUN 43 H
Creatinine 1.6 H
Glucose 197 H
Calcium 9.3
Vital Signs:
Vital Signs
Temp Pulse Resp BP Pulse Ox
97.7 F 72 20 133/61 99
04/18/24 03:16 04/18/24 03:16 04/18/24 03:16 04/18/24 03:16 04/18/24 03:16
[2024-04-18 07:52] LABS: Glucose - Point of Care 172 mg/dl (70-99)
[2024-04-18 08:13] LABS: Glycohemoglobin (HgbA1c) 6.7 % (4.0-5.6)
[2024-04-18] MEDS: NOVOLOG FLEXPEN-LOW RESISTANCE 1 UNITS SC ×2 (08:57→17:21)
[2024-04-18] MEDS: CARDIZEM CD 120 MG PO ×2 (08:58→20:10)
[2024-04-18] MEDS: LOW STRENGTH ASPIRIN 81 MG PO (08:58)
[2024-04-18] MEDS: LIPITOR 80 MG PO (08:58)
[2024-04-18] MEDS: DELTASONE 40 MG PO (08:58)
[2024-04-18] MEDS: ZYLOPRIM 150 MG PO (08:58)
[2024-04-18] MEDS: LASIX 40 MG IV (08:59)
[2024-04-18] MEDS: KCL 10 MEQ PO (08:59)
[2024-04-18] MEDS: ZOLOFT 25 MG PO (09:00)
--- NOTE | 2024-04-18 09:52 | CM ---
CM following re: discharge planning.
Reviewed pt's chart, met with pt.
Pt is an 83 year old female, admitted with primary dx of COPD exacerbation. On room air.
Per UR, pt is upgraded from OBS to inpatient admission. IMM reviewed, placed on chart, pt has a copy.
Pt reports, she lives with 1SH, 5 steps to enter, has 2 living children and 2 children . Emotional support offered and provided. Pt stated she does not have any help from her living children anyway. Pt described herself as
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 Pt stated her helps as needed. Pt expressed her desire to return back home at discharge with support. pt is known to [facility].
PCP: Scooter Green
Pharmacy: [facility]
d/C plan: home with anticipated no needs. to transport at discharge.
CM will follow with discharge plan updates as hospitalization progresses
[2024-04-18 11:42] LABS: Glucose - Point of Care 251 mg/dl (70-99)
[2024-04-18] MEDS: NOVOLOG FLEXPEN-LOW RESISTANCE 3 UNITS SC (12:06)
[2024-04-18] MEDS: NEURONTIN 100 MG PO ×2 (15:38→20:10)
[2024-04-18 17:25] LABS: Glucose - Point of Care 199 mg/dl (70-99)
[2024-04-18] MEDS: ARICEPT 10 MG PO (20:10)
[2024-04-18 21:31] LABS: Glucose - Point of Care 217 mg/dl (70-99)
[2024-04-19] VITALS (7 sets, daily range): BP systolic 123–144; BP diastolic 50–62; PULSE 57; O2SAT 94; BMI 30.7
[2024-04-19] MEDS: SYNTHROID 75 MCG PO (06:04)
[2024-04-19] MEDS: TYLENOL 650 MG PO ×2 (06:06→17:12)
--- NOTE | 2024-04-19 07:24 | W.PN.HOSP.TC ---
Today's Communication/Plan
-
steroid taper
Gabapentin switched to 100 mg HS
glycemic control
discharge planning SNF rehab
Assessment / Plan
Assessment / Plan
Physical Exam
General: No acute distress resting comfortably in bed
HEENT: NormoCephalic, Moist mucous membranes, Atraumatic, [place] Conjunctivae
Respiratory: Clear
Cardiac: S1/S2, Regular Rhythm, no JVD; No Murmur, Rub or Gallop
GI: Soft, Non Tender, Non Distended and Normal Bowel Sounds
Musculoskeletal: No Clubbing, No Cyanosis, No Edema
Skin: No Rash
Neuro: AOx3 conversant coherent
Psych: Calm
83F p Afib htn hypothyroidism CKDIII Dementia here with suspected COPD (never dx w COPD before though parents were smokers, patient never smoked herself) vs CHF exacerbation (less likely)
#Post-viral bronchitis (most likely) vs COPD exacerbation vs Heart Failure (least likely)
CXR: The lungs appear radiographically clear.
Cardiomegaly with no evidence for pulmonary edema or pleural effusion.
Covid: Negative
Influenza: negative
EKG: SINUS BRADYCARDIA WITH 1ST DEGREE A-V BLOCK
- monitor on Tele
- cont prednisone 40mg daily tapered to 30 mg daily
- IV Lasix converted back to home PO dose
-BNP low, not suggestive of heart failure
- DuoNebs prn
- daily weights
- ECHO appreciated preserved EF 55%
- Consult PT/OT appreciated SNF rehab
#DM II
diet controlled
A1C 6.5 (11/15/23)
- AccuCheck AC & HS
- SSI
#Hyperalgesia/Neuropathy
started Gabapentin 100 mg TID
pain appears significantly improved but lethargic/sedated during day
Gabapentin changed to 100 mg HS
#paroxysmal atrial fibrillation
- continue diltiazem
#essential hypertension
- continue diltiazem and furosemide
#hypothyroidism
- continue levothyroxine
#CKD IIIb
BUN 42, Creat 1.5
appears to be baseline
- monitor BMP
#dementia
- continue donepezil
#depression
- continue sertraline
#gout
- continue allopurinol
Code status: DNR
DVT Prophylaxis: Heparin Sq
discussed with patient and patient's daughter Farrah
I spent a total of 45 minutes with the patient or on the floor. More than 50% of this time involved counseling and coordination of care.
Anticipated Discharge: Within 24 hours
Subjective/Interval History
-
Date of Service: April 19, 2024
No acute distress, appears comfortable. Lethargic but arousable. No significant pain at this time.
Objective Data
-
Labs:
Laboratory Results
04/19/24
06:00
WBC Pending
Hgb Pending
Hct Pending
Plt Count Pending
Sodium Pending
Potassium Pending
Chloride Pending
Carbon Dioxide Pending
BUN Pending
Creatinine Pending
Glucose Pending
Calcium Pending
Vital Signs:
Vital Signs
Temp Pulse Resp BP Pulse Ox
97.6 F 61 18 134/57 93
04/19/24 03:01 04/19/24 03:01 04/19/24 03:01 04/19/24 03:01 04/19/24 03:01
I&O
04/18/24 04/19/24 04/20/24
06:59 06:59 06:59
Intake Total 120 / 120
Output Total 250 / 250
Balance -130 / -130
[2024-04-19 08:11] LABS: Hematocrit 37.9 % (37.0-47.0); Hemoglobin 12.8 g/dL (12.0-16.0); Mean Corp Hgb Conc. 33.8 g/dL (33.0-37.0); Mean Corpuscular Volume 88.8 fL (81.0-99.0); Mean Platelet Volume 10.9 fL (7.4-10.4); Platelet Count 216 10^3/uL (130-400); Red Blood Cell Count 4.27 10^6/uL (4.20-5.40); Red Cell Dist. Width 14.2 % (11.5-14.5); White Blood Cell Count 26.7 10^3/uL (4.8-10.8)
[2024-04-19 08:36] LABS: Blood Urea Nitrogen 56 mg/dl (7-17); Calcium 9.6 mg/dl (8.4-10.2); Carbon Dioxide 29 mmol/L (22-30); Chloride 104 mmol/L (98-107); Estimated Creatinine Clearance 25 ml/min; Glucose 146 mg/dl (70-99); Magnesium 2.2 mg/dl (1.6-2.3); Potassium 3.4 mmol/L (3.5-5.1); Sodium 141 mmol/L (135-145)
[2024-04-19 08:46] LABS: Glucose - Point of Care 161 mg/dl (70-99)
--- NOTE | 2024-04-19 09:52 | CM ---
Addendum entered by Ana Hurd 04/19/24 14:43:
CM spoke with patient who indicated that he would like [facility], Per admissions [phone] and (F) [phone], please call the front end specialist at [phone] and ask for the Nursing Physician Office Rep to verify Admission. CM will continue to follow for
discharge planning needs.
Plan; transfer to [facility] on monday pending physician assessment
Addendum entered by Ana Hurd 04/19/24 13:44:
Patient requested referral to [facility], [place] and [facility]. Patient first choice is [facility]. referral sent via all scripts.
Addendum entered by Ana Hurd 04/19/24 11:25:
CM left message for patient asking for call back. CM will continue to follow for discharge plan.
Original Note:
Patient seen at bedside. Patient sleepy with sister on phone, patient nodded that she wanted CM to talk to sister and kept her eyes closed. Therapy recommendation is for SNF. Sister recommending CM talk to patient . Patient nodded that she
understood recommendation but just wanted to sleep. CM updated nursing, and will update patient . CM will continue to follow for discharge planning needs.
Plan; SNF vs home with VN
[2024-04-19] MEDS: KCL 40 MEQ PO (10:36)
[2024-04-19] MEDS: LIPITOR 80 MG PO (10:36)
[2024-04-19] MEDS: KCL 10 MEQ PO (10:36)
[2024-04-19] MEDS: DELTASONE 30 MG PO (10:36)
[2024-04-19] MEDS: LOW STRENGTH ASPIRIN 81 MG PO (10:36)
[2024-04-19] MEDS: LASIX 40 MG PO (10:37)
[2024-04-19] MEDS: HEPARIN 5000 UNITS SC ×3 (10:37→23:00)
[2024-04-19] MEDS: CARDIZEM CD 120 MG PO ×2 (10:37→19:32)
[2024-04-19] MEDS: NOVOLOG FLEXPEN-LOW RESISTANCE 1 UNITS SC ×3 (10:37→17:06)
[2024-04-19] MEDS: ZYLOPRIM 150 MG PO (10:37)
[2024-04-19] MEDS: ZOLOFT 25 MG PO (10:37)
[2024-04-19] MEDS: NEURONTIN PO (11:10)
[2024-04-19] MEDS: DELTASONE PO ×3 (11:11→11:12)
[2024-04-19 11:53] LABS: Glucose - Point of Care 198 mg/dl (70-99)
[2024-04-19 16:55] LABS: Glucose - Point of Care 155 mg/dl (70-99)
[2024-04-19] MEDS: ARICEPT 10 MG PO (21:27)
[2024-04-19] MEDS: NEURONTIN 100 MG PO (21:27)
[2024-04-19 21:31] LABS: Glucose - Point of Care 199 mg/dl (70-99)
[2024-04-20] MEDS: SYNTHROID 75 MCG PO (04:54)
[2024-04-20 05:06] VITALS: BP 151/58
[2024-04-20 05:07] VITALS: BMI 30.6
[2024-04-20 06:07] LABS: Hemoglobin 12.9 g/dL (12.0-16.0); Mean Corp Hgb Conc. 33.1 g/dL (33.0-37.0); Mean Corpuscular Hgb 29.7 pg (27.0-31.0); Mean Corpuscular Volume 89.7 fL (81.0-99.0); Mean Platelet Volume 11.4 fL (7.4-10.4); Platelet Count 228 10^3/uL (130-400); Red Blood Cell Count 4.35 10^6/uL (4.20-5.40); Red Cell Dist. Width 14.2 % (11.5-14.5); White Blood Cell Count 24.4 10^3/uL (4.8-10.8)
[2024-04-20 06:27] LABS: Blood Urea Nitrogen 52 mg/dl (7-17); Calcium 9.8 mg/dl (8.4-10.2); Carbon Dioxide 28 mmol/L (22-30); Chloride 106 mmol/L (98-107); Estimated Creatinine Clearance 25 ml/min; Glucose 142 mg/dl (70-99); Magnesium 2.2 mg/dl (1.6-2.3); Phosphorus 3.5 mg/dl (2.5-4.5); Potassium 3.9 mmol/L (3.5-5.1); Sodium 144 mmol/L (135-145)
--- NOTE | 2024-04-20 07:03 | W.PN.HOSP.TC ---
Today's Communication/Plan
-
steroid taper
TEDS
monitor Orthostatic vitals
PT/OT
glycemic control
discharge planning SNF
Assessment / Plan
Assessment / Plan
Physical Exam
General: No acute distress resting comfortably in bed
HEENT: NormoCephalic, Moist mucous membranes, Atraumatic, [place] Conjunctivae
Respiratory: Clear
Cardiac: S1/S2, Regular Rhythm, no JVD; No Murmur, Rub or Gallop
GI: Soft, Non Tender, Non Distended and Normal Bowel Sounds
Musculoskeletal: No Clubbing, No Cyanosis, No Edema
Skin: No Rash
Neuro: AOx3 conversant coherent
Psych: Calm
83F p Afib htn hypothyroidism CKDIII Dementia here with suspected COPD (never dx w COPD before though parents were smokers, patient never smoked herself) vs CHF exacerbation (less likely)
#Post-viral bronchitis (most likely) vs COPD exacerbation vs Heart Failure (least likely)
CXR: The lungs appear radiographically clear.
Cardiomegaly with no evidence for pulmonary edema or pleural effusion.
Covid: Negative
Influenza: negative
EKG: SINUS BRADYCARDIA WITH 1ST DEGREE A-V BLOCK
- monitor on Tele
- cont prednisone 40mg daily tapered to 30 mg daily
- IV Lasix converted back to home PO dose
-BNP low, not suggestive of heart failure
- DuoNebs prn
- daily weights
- ECHO appreciated preserved EF 55%
- Consult PT/OT appreciated SNF rehab
Orthostatic hypotension symptomatic
TEDS
#DM II
diet controlled
A1C 6.5 (11/15/23)
- AccuCheck AC & HS
- SSI
Intermittent chest pain, transient, chronic
troponin neg
neg EKG
#Hyperalgesia/Neuropathy
started Gabapentin 100 mg TID
pain appears significantly improved but lethargic/sedated during day
Gabapentin changed to 100 mg HS
pain remains well controlled
#paroxysmal atrial fibrillation
- continue diltiazem
#essential hypertension
- continue diltiazem and furosemide
#hypothyroidism
- continue levothyroxine
#CKD IIIb
BUN 42, Creat 1.5
appears to be baseline
- monitor BMP
#dementia
- continue donepezil
#depression
- continue sertraline
#gout
- continue allopurinol
Code status: DNR
DVT Prophylaxis: Heparin Sq
discussed with patient and patient's daughter Farrah
I spent a total of 45 minutes with the patient or on the floor. More than 50% of this time involved counseling and coordination of care.
Anticipated Discharge: 24 - 48 hours
Subjective/Interval History
-
Date of Service: April 20, 2024
No acute distress sitting up comfortably in bed reports pain significantly improved. Also reports intermittent transient chest pain but chronic has had 'for a while.'
Objective Data
-
Labs:
Laboratory Results
04/20/24
05:18
WBC 24.4 H
Hgb 12.9
Hct 39.0
Plt Count 228
Sodium 144
Potassium 3.9
Chloride 106
Carbon Dioxide 28
BUN 52 H
Creatinine 1.6 H
Glucose 142 H
Calcium 9.8
Vital Signs:
Vital Signs
Temp Pulse Resp BP Pulse Ox
98.2 F 57 16 151/58 95
04/20/24 05:06 04/20/24 05:06 04/20/24 05:06 04/20/24 05:06 04/20/24 05:06
I&O
04/19/24 04/20/24 04/21/24
06:59 06:59 07:59
Intake Total 120 / 120 360 / 360
Output Total 250 / 250 850 / 850
Balance -130 / -130 -490 / -490
[2024-04-20 07:14] LABS: Glucose - Point of Care 136 mg/dl (70-99)
[2024-04-20 07:40] VITALS: BP 151/61
[2024-04-20] MEDS: ZOLOFT 25 MG PO (08:27)
[2024-04-20] MEDS: ZYLOPRIM 150 MG PO (08:28)
[2024-04-20] MEDS: LIPITOR 80 MG PO (08:30)
[2024-04-20] MEDS: DELTASONE 10 MG PO (08:30)
[2024-04-20] MEDS: LOW STRENGTH ASPIRIN 81 MG PO (08:30)
[2024-04-20] MEDS: DELTASONE 20 MG PO (08:30)
[2024-04-20] MEDS: LASIX 40 MG PO (08:30)
[2024-04-20] MEDS: CARDIZEM CD 120 MG PO ×2 (08:31→19:40)
[2024-04-20] MEDS: KCL 10 MEQ PO (08:31)
[2024-04-20] MEDS: HEPARIN 5000 UNITS SC ×3 (08:31→23:21)
[2024-04-20] MEDS: NOVOLOG FLEXPEN-LOW RESISTANCE SC (08:46)
[2024-04-20 11:14] LABS: Glucose - Point of Care 200 mg/dl (70-99)
[2024-04-20 11:17] VITALS: BP 146/62
[2024-04-20] MEDS: NOVOLOG FLEXPEN-LOW RESISTANCE 2 UNITS SC ×2 (12:38→17:44)
[2024-04-20 12:52] LABS: Glucose - Point of Care 209 mg/dl (70-99)
[2024-04-20 14:35] VITALS: BP 108/62; BP 130/80; BP 140/61; PULSE 105; PULSE 64; PULSE 67
[2024-04-20 14:50] LABS: Troponin I < 0.012 ng/ml
[2024-04-20] MEDS: TYLENOL 650 MG PO (16:41)
[2024-04-20 17:27] LABS: Glucose - Point of Care 237 mg/dl (70-99)
[2024-04-20 19:00] VITALS: BP 139/57
[2024-04-20] MEDS: ARICEPT 10 MG PO (21:40)
[2024-04-20] MEDS: NEURONTIN 100 MG PO (21:40)
[2024-04-20 22:33] LABS: Glucose - Point of Care 234 mg/dl (70-99)
[2024-04-20 23:00] VITALS: BP 155/65
[2024-04-21] VITALS (7 sets, daily range): BP systolic 98–164; BP diastolic 49–76; PULSE 57–110; BMI 30.5
[2024-04-21] MEDS: SYNTHROID 75 MCG PO (05:10)
[2024-04-21 07:07] LABS: Hematocrit 39.5 % (37.0-47.0); Mean Corp Hgb Conc. 32.9 g/dL (33.0-37.0); Mean Corpuscular Hgb 29.6 pg (27.0-31.0); Platelet Count 218 10^3/uL (130-400); Red Blood Cell Count 4.39 10^6/uL (4.20-5.40); Red Cell Dist. Width 14.1 % (11.5-14.5); White Blood Cell Count 18.9 10^3/uL (4.8-10.8)
--- NOTE | 2024-04-21 07:09 | W.PN.HOSP.TC ---
Today's Communication/Plan
-
Abd binder
JENNIFER stockings
d/c Lasix
monitor orthostatic vitals
Acapella
Discharge planning SNF rehab
Assessment / Plan
Assessment / Plan
Physical Exam
General: No acute distress resting comfortably in bed
HEENT: NormoCephalic, Moist mucous membranes, Atraumatic, [place] Conjunctivae
Respiratory: Clear
Cardiac: S1/S2, Regular Rhythm, no JVD; No Murmur, Rub or Gallop
GI: Soft, Non Tender, Non Distended and Normal Bowel Sounds
Musculoskeletal: No Clubbing, No Cyanosis, No Edema
Skin: No Rash
Neuro: AOx3 conversant coherent
Psych: Calm
83F p Afib htn hypothyroidism CKDIII Dementia here with suspected COPD (never dx w COPD before though parents were smokers, patient never smoked herself) vs CHF exacerbation (less likely)
#Post-viral bronchitis (most likely) vs COPD exacerbation vs Heart Failure (least likely)
CXR: The lungs appear radiographically clear.
Cardiomegaly with no evidence for pulmonary edema or pleural effusion.
COVID Flu neg
EKG: SINUS BRADYCARDIA WITH 1ST DEGREE A-V BLOCK
- monitor on Tele
- cont prednisone 40mg daily tapered to 10 mg daily, short taper planned
- IV Lasix converted back to home PO dose later discontinued due to orthostatic hypotension as below
-BNP low, not suggestive of heart failure
- DuoNebs prn
- daily weights
- ECHO appreciated preserved EF 55%
- Consult PT/OT appreciated SNF rehab
-Acapella
-briefly treated with Acapella but could not tolerate, subsequently discontinued
-outpt Pulm follow up recommended
Severe Orthostatic hypotension symptomatic
TEDS, Abd Binder
home Lasix discontinued
#DM II
diet controlled
A1C 6.5 (11/15/23)
- AccuCheck AC & HS
- SSI
Intermittent chest pain, transient, chronic
troponin neg
neg EKG
#Hyperalgesia/Neuropathy
started Gabapentin 100 mg TID
pain appeared significantly improved but lethargic/sedated during day
Gabapentin changed to 100 mg HS
Pain remains well controlled
#paroxysmal atrial fibrillation
- continue diltiazem
#essential hypertension
- continue diltiazem and furosemide
#hypothyroidism
- continue levothyroxine
#CKD IIIb
BUN 42, Creat 1.5
appears to be baseline
- monitor BMP
#dementia
- continue donepezil
#depression
- continue sertraline
#gout
- continue allopurinol
Code status: DNR
DVT Prophylaxis: Heparin Sq
discussed with patient and patient's daughter Farrah
I spent a total of 45 minutes with the patient or on the floor. More than 50% of this time involved counseling and coordination of care.
Anticipated Discharge: 24 - 48 hours
Subjective/Interval History
-
Date of Service: April 21, 2024
Severe orthostatic hypotension. Patient also endorses coughing, difficulty bringing up sputum
Objective Data
-
Labs:
Laboratory Results
04/21/24
05:58
WBC 18.9 H
Hgb 13.0
Hct 39.5
Plt Count 218
Sodium Pending
Potassium Pending
Chloride Pending
Carbon Dioxide Pending
BUN Pending
Creatinine Pending
Glucose Pending
Calcium Pending
Vital Signs:
Vital Signs
Temp Pulse Resp BP Pulse Ox
97.8 F 54 18 160/66 96
04/21/24 04:00 04/21/24 04:00 04/21/24 04:00 04/21/24 04:00 04/21/24 04:00
I&O
04/20/24 04/21/24 04/22/24
05:59 06:59 06:59
Intake Total
Output Total
Balance
[2024-04-21 07:11] LABS: Glucose - Point of Care 134 mg/dl (70-99)
[2024-04-21] MEDS: NOVOLOG FLEXPEN-LOW RESISTANCE SC ×2 (07:22→11:45)
[2024-04-21 07:33] LABS: Blood Urea Nitrogen 47 mg/dl (7-17); Calcium 9.7 mg/dl (8.4-10.2); Carbon Dioxide 28 mmol/L (22-30); Chloride 103 mmol/L (98-107); Estimated Creatinine Clearance 27 ml/min; Glucose 135 mg/dl (70-99); Magnesium 2.1 mg/dl (1.6-2.3); Potassium 4.3 mmol/L (3.5-5.1); Sodium 141 mmol/L (135-145); eGFR 34.36
[2024-04-21] MEDS: ZYLOPRIM 150 MG PO (09:39)
[2024-04-21] MEDS: LIPITOR 80 MG PO (09:39)
[2024-04-21] MEDS: ZOLOFT 25 MG PO (09:39)
[2024-04-21] MEDS: DELTASONE 20 MG PO (09:39)
[2024-04-21] MEDS: KCL 10 MEQ PO (09:39)
[2024-04-21] MEDS: HEPARIN 5000 UNITS SC ×3 (09:40→23:07)
[2024-04-21] MEDS: CARDIZEM CD 120 MG PO ×2 (09:54→20:06)
[2024-04-21] MEDS: LASIX 40 MG PO (09:54)
[2024-04-21] MEDS: LOW STRENGTH ASPIRIN 81 MG PO (09:54)
[2024-04-21 11:17] LABS: Glucose - Point of Care 139 mg/dl (70-99)
[2024-04-21] MEDS: DUONEB 3 ML INH ×2 (11:21→20:59)
[2024-04-21] MEDS: TYLENOL 650 MG PO (16:25)
[2024-04-21 17:31] LABS: Glucose - Point of Care 286 mg/dl (70-99)
[2024-04-21] MEDS: NOVOLOG FLEXPEN-LOW RESISTANCE 3 UNITS SC (18:13)
[2024-04-21] MEDS: ARICEPT 10 MG PO (22:25)
[2024-04-21] MEDS: NEURONTIN 100 MG PO (22:26)
[2024-04-21 23:01] LABS: Glucose - Point of Care 482 mg/dl (70-99)
[2024-04-21 23:23] LABS: Glucose 364 mg/dl (70-99)
[2024-04-21] MEDS: NOVOLOG FLEXPEN 15 UNITS SC (23:35)
[2024-04-22 01:43] LABS: Glucose - Point of Care 272 mg/dl (70-99)
[2024-04-22] MEDS: SYNTHROID 75 MCG PO (05:22)
[2024-04-22 05:33] VITALS: BMI 30.8
[2024-04-22 07:31] LABS: Glucose - Point of Care 160 mg/dl (70-99)
[2024-04-22 07:51] LABS: Glucose - Point of Care 380 mg/dl (70-99)
[2024-04-22] MEDS: NOVOLOG FLEXPEN-LOW RESISTANCE 1 UNITS SC ×2 (07:57→11:59)
[2024-04-22 07:59] VITALS: BP 142/60
[2024-04-22] MEDS: ZYLOPRIM 150 MG PO (07:59)
[2024-04-22] MEDS: LIPITOR 80 MG PO (07:59)
[2024-04-22] MEDS: ZOLOFT 25 MG PO (08:00)
[2024-04-22] MEDS: HEPARIN 5000 UNITS SC (08:00)
[2024-04-22] MEDS: DELTASONE 10 MG PO (08:00)
[2024-04-22] MEDS: LOW STRENGTH ASPIRIN 81 MG PO (08:00)
[2024-04-22] MEDS: CARDIZEM CD 120 MG PO (08:00)
[2024-04-22 08:20] LABS: Hematocrit 37.8 % (37.0-47.0); Hemoglobin 12.5 g/dL (12.0-16.0); Mean Corp Hgb Conc. 33.1 g/dL (33.0-37.0); Mean Corpuscular Hgb 29.8 pg (27.0-31.0); Mean Platelet Volume 11.5 fL (7.4-10.4); Platelet Count 218 10^3/uL (130-400); Red Cell Dist. Width 13.9 % (11.5-14.5)
[2024-04-22 08:46] LABS: Blood Urea Nitrogen 36 mg/dl (7-17); Calcium 9.4 mg/dl (8.4-10.2); Carbon Dioxide 27 mmol/L (22-30); Chloride 106 mmol/L (98-107); Estimated Creatinine Clearance 29 ml/min; Glucose 146 mg/dl (70-99); Phosphorus 3.4 mg/dl (2.5-4.5); Potassium 3.5 mmol/L (3.5-5.1); Sodium 140 mmol/L (135-145); eGFR 37.33
--- NOTE | 2024-04-22 11:25 | CM ---
Addendum entered by Angela Goodson 04/22/24 12:19:
1500 transport
IMM verbally reviewed with pt- copy provided
She is in agreement with plan
Original Note:
CM reviewed pt with Dr Hartman, pt ready for dc
Bed confirmed with Eve/[facility]
VM left for spouse, update top dtr who is in agreement with plan
Medical necessity and transport form on chart
BLS requested through Acute Care
Discharge Disposition- [facility] via BLS
Phone- [phone] Fax- [phone]
[2024-04-22 11:38] VITALS: BP 108/70; BP 146/63; PULSE 108; PULSE 85; O2SAT 95
[2024-04-22] MEDS: DULCOLAX 5 MG PO (11:48)
--- NOTE | 2024-04-22 11:51 | W.DCSUMMARY ---
Discharge Summary
Discharge Data
Date of Admission: 04/18/24
Date of Discharge: 04/22/24
-
Pending Results: No
Hospital Course
Ms. Carty is an 83-year-old female with a medical history of paroxysmal A-fib, essential hypertension, CKD stage IIIb, hypothyroidism, dementia, and suspicion for COPD (never diagnosed, parents were smokers, patient is a never smoker) who
presented with shortness of breath. She was bronchospastic. No evidence of consolidation or volume overload on chest imaging. Respiratory panel is negative for COVID-19 and influenza. BNP was low and echocardiogram showed normal cardiac
structure and function. She was treated with steroids and nebulizers with improvement in her respiratory symptoms. She was initially treated with IV Lasix which was later converted to her home p.o. dose and then discontinued altogether due to
orthostatic hypotension. She had dizziness associated with her orthostatic hypotension which resolved with abdominal binder, JENNIFER stockings, and discontinuation of her Lasix. Her respiratory status returned to baseline. She was started on
gabapentin for neuropathy initially with 100 mg 3 times daily which was later changed to 100 mg at night to avoid oversedation during the day. She was evaluated by PT/OT who recommend SNF once medically stable. She will be discharged to SNF for
ongoing rehab. She will continue steroid taper until complete. Her blood sugars were elevated due to steroid administration, and so she will be continued on sliding scale insulin as needed. Her hemoglobin A1c was elevated at 6.7% during this
admission. Her blood sugar should be monitored following discontinuation of steroid taper to assess whether or not she will need an ongoing antihyperglycemic regimen. She will need close follow-up with her primary care physician and with the
shelf drier operator after hospital discharge. Her home Lasix will be changed to as needed for abrupt weight gain or lower extremity edema. She should follow-up with her digital watch assembler and PCP regarding further adjustments to her medication regimen as
needed.
Gen-awake and alert, NAD
HEENT-NC, AT, anicteric, clear oral mm
Neck-supple
CV-reg, no M, +S1/S2
Lungs-clear B/L
Abd-soft, NT, ND
Musculoskeletal-no edema, no deformity
Skin-warm and dry
Neuro-grossly non-focal
Psych-calm, cooperative
Discharge Plan
-
Patient Disposition: Penitentiary/SNF
Discharge Diagnosis/Procedures: Proctitis, orthostatic hypotension
Diet: As tolerated
Activity: With assistance and As tolerated
Activity Restrictions/Additional Instructions:
Ms. Carty is an 83-year-old female with a medical history of paroxysmal A-fib, essential hypertension, CKD stage IIIb, hypothyroidism, dementia, and suspicion for COPD (never diagnosed, parents were smokers, patient is a never smoker) who
presented with shortness of breath. She was bronchospastic. No evidence of consolidation or volume overload on chest imaging. Respiratory panel is negative for COVID-19 and influenza. BNP was low and echocardiogram showed normal cardiac
structure and function. She was treated with steroids and nebulizers with improvement in her respiratory symptoms. She was initially treated with IV Lasix which was later converted to her home p.o. dose and then discontinued altogether due to
orthostatic hypotension. She had dizziness associated with her orthostatic hypotension which resolved with abdominal binder, JENNIFER stockings, and discontinuation of her Lasix. Her respiratory status returned to baseline. She was started on
gabapentin for neuropathy initially with 100 mg 3 times daily which was later changed to 100 mg at night to avoid oversedation during the day. She was evaluated by PT/OT who recommend SNF once medically stable. She will be discharged to SNF for
ongoing rehab. She will continue steroid taper until complete. Her blood sugars were elevated due to steroid administration, and so she will be continued on sliding scale insulin as needed. Her hemoglobin A1c was elevated at 6.7% during this
admission. Her blood sugar should be monitored following discontinuation of steroid taper to assess whether or not she will need an ongoing antihyperglycemic regimen. She will need close follow-up with her primary care physician and with the
shelf drier operator after hospital discharge. Her home Lasix will be changed to as needed for abrupt weight gain or lower extremity edema. She should follow-up with her digital watch assembler and PCP regarding further adjustments to her medication regimen as
needed.
Referrals:
Emma Hay DO [Active] - in two to four weeks
Scooter Green MD [Family Provider] - in one week
Prescriptions:
New
insulin aspart U-100 100 unit/mL (3 mL) insulin pen
1 sliding scale dose SC AC 30 Days Qty: 3 0RF
prednisone 10 mg Tablet
10 mg PO DAILY 3 Days Qty: 3 0RF
gabapentin 100 mg Capsule
100 mg PO HS 30 Days Qty: 30 0RF
albuterol sulfate 90 mcg/actuation HFA aerosol inhaler
2 puff inhalation Q6H PRN (Reason: shortness of breath or wheezing) Qty: 6.7 0RF
Continued
levothyroxine 75 MCG tablet
75 mcg PO DAILY
sertraline 50 MG tablet
25 mg PO DAILY
diltiazem HCl 120 MG capsule,extended release 24hr
120 mg PO BID
allopurinol 100 MG tablet
150 mg PO DAILY
meclizine 25 mg Tablet
25 mg PO Q8HPRN PRN (Reason: vertigo)
donepezil 10 mg Tablet
10 mg PO HS
atorvastatin 80 mg Tablet
80 mg PO DAILY
aspirin 81 mg Tablet,Chewable
81 mg PO DAILY
Changed
furosemide 40 mg Tablet
40 mg PO DAILY PRN (Reason: For abrupt weight gain or lower extremity edema) Qty: 0 0RF
Held
potassium chloride 10 MEQ tablet,ER particles/crystals
10 meq PO DAILY
Hold Instructions: Can restart if using Lasix again in the future or if blood work indicates hypokalemia
Discharge Orders:
Discharge Patient (As Directed); Ordered 04/22/24
Ordered By: Mina Hartman
Discharge Date and Time
Print Language: NEPALI
[2024-04-22 12:09] LABS: Glucose - Point of Care 173 mg/dl (70-99)
[2024-04-22 13:36] VITALS: BP 135/53
== END 2024-04-22 15:53 | DRG 202 ==
LOC: 1 ACUTE 07:21
PROVIDERS: Internal Medicine; Nurse Practitioner Family; ADMITTING PHYSICIAN Student in an Organized Health Care Education/Training Program; ATTENDING PHYSICIAN Internal Medicine; EMERGENCY PHYSICIAN Emergency Medicine; FAMILY PHYSICIAN Family Medicine
DX: J20.8 Acute bronchitis due to other specified organisms (principal); F03.93 Unspecified dementia, unspecified severity, with mood disturbance; I13.0 Hypertensive heart and chronic kidney disease with heart failure and stage 1 through stage 4 chronic kidney disease, or unspecified chronic kidney disease; I50.32 Chronic diastolic (congestive) heart failure; I95.1 Orthostatic hypotension; I48.0 Paroxysmal atrial fibrillation; E89.0 Postprocedural hypothyroidism; N18.32 Chronic kidney disease, stage 3b; F32.A Depression, unspecified; Z11.52 Encounter for screening for COVID-19; M10.9 Gout, unspecified; Z66 Do not resuscitate; Z82.49 Family history of ischemic heart disease and other diseases of the circulatory system; Z88.0 Allergy status to penicillin; Z79.82 Long term (current) use of aspirin; E78.5 Hyperlipidemia, unspecified; K21.9 Gastro-esophageal reflux disease without esophagitis; Z86.73 Personal history of transient ischemic attack (TIA), and cerebral infarction without residual deficits; J43.9 Emphysema, unspecified; E11.22 Type 2 diabetes mellitus with diabetic chronic kidney disease; E11.40 Type 2 diabetes mellitus with diabetic neuropathy, unspecified; T38.0X5A Adverse effect of glucocorticoids and synthetic analogues, initial encounter; Z79.890 Hormone replacement therapy; Z79.899 Other long term (current) drug therapy; Z90.711 Acquired absence of uterus with remaining cervical stump; Z96.653 Presence of artificial knee joint, bilateral; J44.9 Chronic obstructive pulmonary disease, unspecified
CPT/HCPCS: 71046; 80048; 80053; 82947; 82962; 83036; 83735; 83880; 84100; 84484; 85025; 85027; 87070; 87324; 87449; 87502; 87798; 87811; 93005; 93306; 94640; 94669; 96361; 96374; 97116; 97163; 97167; 97530; 99285

== ENCOUNTER → 2024-04-25 11:49 | Outpatient (REF) | payer MEDICARE, OTHER, SELFPAY ==
[2024-04-25 12:35] LABS: % Basophils 0.4 % (0-2); % Eosinophils 1.4 % (0-6); % Immature Granulocytes 2.9 % (0-0.5); % Lymphocytes 24.9 % (20.5-51.1); % Monocytes 8.1 % (1.7-9.3); % Neutrophils 62.3 % (42.2-75.2); Absolute Basophils 0.1 10^3/uL (0-0.2); Absolute Eosinophils 0.2 10^3/uL (0-0.7); Absolute Immature Granulocytes 0.4 10^3/uL (0-0.05); Absolute Lymphocytes 3.6 10^3/uL (1.2-3.4); Absolute Monocytes 1.2 10^3/uL (0.1-0.6); Absolute Neutrophils 8.9 10^3/uL (1.4-6.5); Blood Urea Nitrogen 27 mg/dl (7-17); Calcium 9.4 mg/dl (8.4-10.2); Carbon Dioxide 27 mmol/L (22-30); Chloride 105 mmol/L (98-107); Glucose 114 mg/dl (70-99); Hematocrit 37.1 % (37.0-47.0); Hemoglobin 12.3 g/dL (12.0-16.0); Mean Corp Hgb Conc. 33.2 g/dL (33.0-37.0); Mean Corpuscular Hgb 29.8 pg (27.0-31.0); Mean Corpuscular Volume 89.8 fL (81.0-99.0); Mean Platelet Volume 11.8 fL (7.4-10.4); Nucleated Red Blood Cells % 0 %; Platelet Count 229 10^3/uL (130-400); Potassium 3.5 mmol/L (3.5-5.1); Red Blood Cell Count 4.13 10^6/uL (4.20-5.40); Red Cell Dist. Width 14.1 % (11.5-14.5); Sodium 140 mmol/L (135-145); White Blood Cell Count 14.3 10^3/uL (4.8-10.8); eGFR 49.86
== END ==
LOC: OLABP 11:49
PROVIDERS: ATTENDING PHYSICIAN Family Medicine
DX: J44.1 Chronic obstructive pulmonary disease with (acute) exacerbation (principal); I50.33 Acute on chronic diastolic (congestive) heart failure; I48.0 Paroxysmal atrial fibrillation; I10 Essential (primary) hypertension; E11.22 Type 2 diabetes mellitus with diabetic chronic kidney disease; E03.9 Hypothyroidism, unspecified; N18.32 Chronic kidney disease, stage 3b; F03.90 Unspecified dementia, unspecified severity, without behavioral disturbance, psychotic disturbance, mood disturbance, and anxiety; M10.9 Gout, unspecified
CPT/HCPCS: 36415; 80048; 85025

== ENCOUNTER → 2024-11-19 14:54 | Outpatient (REF) | payer MEDICARE, OTHER, SELFPAY | LOC: RAD 14:54 | PROVIDERS: ATTENDING PHYSICIAN Physician Assistant; FAMILY PHYSICIAN Family Medicine | DX: S69.91XA Unspecified injury of right wrist, hand and finger(s), initial encounter (principal) | CPT/HCPCS: 73110; 73130 ==